=== PATIENT | male | born 1970 | race Caucasian/White ===

== ENCOUNTER → 2020-02-26 06:21 | Outpatient (CLI) | payer OTHER, SELFPAY ==
--- NOTE | 2020-02-26 06:22 | CA_ITS ---
APPROVED REPORT EXAM: Comprehensive 2D, Doppler, and color-flow Echocardiogram Clarifying Plant Operator: Muna Vargas RVT Ht: 5 ft 8 in Wt: 200lbs BSA: 2.04 BP: 141/75 mmHg Indications: CP,SOA,CAD,HX OF SMOKING,HTN,HLD 2D Dimensions LVOT 2.00 cm (M/F) 1.5-2.5 M-Mode Dimensions RVDd 3.04 cm (0.9-2.6) LVDd 4.83 cm (3.5-5.7) LVDs 3.31 cm (3.5-5.7) IVSd 1.10 cm (0.6-1.1) PWd 0.76 cm (0.6-1.1) EF (Teich) 59.20% FS 31.50% EDV (Teich) 109.10 mL ESV (Teich) 44.50 mL LV Diastology E/A Ratio 1.27 Mitral Valve MV A Velocity 45.00 (40-130 cm/s) Left Ventricle Left atrium is mildly enlarged, left ventricle is normal size, left ventricle wall thickness is upper limit of the normal, visually estimated ejection fraction 55% with no regional wall motion abnormality, diastolic parameters are within normal range. Right Ventricle Right atrium and right ventricular mildly enlarged with normal contractility. Aortic Valve Aortic valve is grossly normal, there is no aortic stenosis or aortic insufficiency. Mitral Valve Mitral valve is grossly normal, there is mild mitral regurgitation. Tricuspid Valve Tricuspid valve grossly normal, there is mild tricuspid regurgitation, tricuspid regurgitation jet velocity is inadequate for calculation of the right ventricular systolic pressure. Pulmonic Valve Pulmonic valve is poorly visualized. Great Vessels Aortic root is normal size. Pericardium No significant pericardial effusion noted. Conclusion 1. Mild biatrial enlargement, normal left ventricular size, visually estimated ejection fraction 55% with no regional wall motion abnormality, diastolic parameters are within normal range. 2. Mildly enlarged right ventricle with normal contractility. 3. Mild mitral and tricuspid regurgitation. 4. No significant pericardial effusion noted. Electronically signed by : Macho Frederick, 02/26/2020 21:43:21
--- NOTE | 2020-02-26 06:22 | CA_ITS ---
APPROVED REPORT Exam: Exercise Treadmill Technologist: Swapna Wallace Ht: 5 ft 8 in Wt: 200 lbs BSA: 2.04 m2 HR: 58 bpm BP: 154/83 mmHg Indications: Chest pain, Shortness of Air Medical History Medications: Amlodipine,,,,, Aspirin,,,,, Atorvastatin,,,,, Stress Test Details Test: Clint HR Resting HR: 61 bpm Max Heart Rate (APMHR): 169 bpm Max HR Achieved: 139 bpm Target HR (85% APMHR): 143 bpm % of APMHR: 82 Recovery HR: 87 bpm BP Resting BP: 154.0/83.0 mmHg Max BP: 196.0/80.0 mmHg Recovery BP: 152.0/86.0 mmHg ECG Clinical Exercise duration: 09:46 min Highest Stage Achieved: Exercise capacity: 10.1 METs Stress ECG Conclusion Resting ECG: Sinus bradycardia, otherwise normal. Patient exercised 9:46 on Clint Protocol. Test stopped due to shortness of air, fatigue. Symptoms: Mild chest tightness Arrhythmias/Ectopy: Occasional PVC and fusion beat. ST-T Changes: [address] depression inferiorly and 0.5 mm laterally. Conclusion: Mild chest tightness with equivocal EKG changes. Myoview images reported separately. Test Summary REST . . . . . . . Sitting REST . . . . . . . Standing REST 10:42 0.0 0.0 61 . 154/ 83 . . Stage 1 01:00 10.0 1.7 92 . . . . Stage 1 02:00 10.0 1.7 92 . . . . Stage 1 03:00 10.0 1.7 94 . 160/ 80 . . Stage 2 01:00 12.0 2.5 103 . . . . Stage 2 02:00 12.0 2.5 109 . . . . Stage 2 03:00 12.0 2.5 113 . 178/ 78 . . Stage 3 01:00 14.0 3.4 123 . . . . Stage 3 02:00 14.0 3.4 128 . . . . Stage 3 . . . . . . . Myoview Injected Stage 3 03:00 14.0 3.4 131 . 194/ 80 . . Stage 4 00:46 16.0 4.2 138 . . . Stop exercise at 09:46 RECOVERY . . . . . . . chest tightness RECOVERY 01:00 0.0 0.0 114 . 196/ 80 . . RECOVERY 02:00 0.0 0.0 97 . 196/ 80 . . RECOVERY 03:00 0.0 0.0 90 . 192/ 90 . . RECOVERY 04:00 0.0 0.0 94 . 171/ 83 . . RECOVERY 05:00 0.0 0.0 80 . 171/ 83 . . RECOVERY 05:25 0.0 0.0 82 . 152/ 86 . . Electronically signed by : Macho Frederick, 02/26/2020 21:21:26
--- NOTE | 2020-02-26 06:22 | NM_ITS ---
APPROVED REPORT Exam: Nuclear Stress Test Indication: chest pain Patient Location: Outpatient Stress Tech: Swapna Wallace [place] Tech:JACOB Grullon RT(R)(N) Ht: 5 ft 8 in Wt: 200 lbs HR: 58 bpm BP: 154/83 mmHg BSA: 2.04 m2 BMI: 30.4 History: chest pain Procedure: Patient exercised on Clnit protocol 9.46 minutes and sec, resting heart rate 58 bpm, resting blood pressure 154/83 mmHg, with exercise maximum heart rate achived was 139 bpm which is 82 % of the maximum predicted heart rate and blood pressure was 196/80 mmHg. Test was stopped due to Chest tightness.. Patient has Good exercise capacity, achieved 10.1 METs of workload on treadmill, the blood pressure response to exercise was Adequate. Electrocardiogram Resting electrocardiogram showed sinus rhythm, with exercise there is less than 1.[address] segment depression noted from the baseline EKG. The EKG portion of the exercise Myoview is nondiagnostic as patient did not achieve the target heart rate. Cardiac Stress and Resting SPECT Images: Cardiac Stress and Resting SPECT images were obtained using technetium 99m Myoview 32.4 mCi stress and 10.76 mCi at rest. Gated SPECT with analysis of segmental wall motion and calculation of the ejection fraction also done. Cardiac stress and rest SPECT images show decreased tracer activity in the inferior wall which improves on the resting images raising the concerns for presence of reversible ischemia, computer derived ejection fraction is 49% with mild inferior wall hypokinesis. Right ventricle is normal size and contractility. Conclusion: 1. The EKG portion of the exercise Myoview is nondiagnostic as patient did not achieve the target heart rate, patient has good exercise capacity achieved 10.1 mets of workload on treadmill, the blood pressure response to exercise was adequate, patient complained chest tightness with exercise. 2. Scintigraphic evidence of mild reversible ischemia involving the inferior wall, computer derived ejection fraction is 49% with mild inferior wall hypokinesis, right ventricle is normal size and contractility. 3. Abnormal exercise Myoview study. Electronically signed by : Macho Frederick, 02/26/2020 21:24:30
--- NOTE | 2020-02-26 10:14 | HMH.ITSHM ---
Current Home Medications as stated by this patient Anival Nelson or claim service representative. [] asa atorvastatin amlodipine
== END ==
PROVIDERS: PCP Family Medicine; Visit Provider Nurse Practitioner Family
DX: R07.9 Chest pain, unspecified (principal); I25.118 Atherosclerotic heart disease of native coronary artery with other forms of angina pectoris; I10 Essential (primary) hypertension; F17.200 Nicotine dependence, unspecified, uncomplicated
CPT/HCPCS: 78452; 93017; 93306; A9502

== ENCOUNTER → 2020-02-29 09:23 | Outpatient (CLI) | payer OTHER, SELFPAY ==
[2020-02-29 12:19] LABS: Alanine Aminotransferase 43 U/L (12-78); Albumin Level 4.4 g/dl (3.5-5.0); Alkaline Phosphatase 56 U/L (38-126); Aspartate Amino Transferase 38 U/L (17-59); Bilirubin,Direct 0.1 mg/dl (0.0-0.4); Bilirubin,Indirect 0.5 mg/dL (0.0-0.9); Bilirubin,Total 0.6 mg/dl (0.2-1.3); Bilirubin,Unconjugated 0.5 mg/dL (0.0-1.1); Cholesterol 149 mg/dl (140-200); HDL Cholesterol 49 mg/dl (40-60); Total Protein,Serum 7.6 g/dl (6.3-8.2); Triglycerides 77 mg/dl (30-150); VLDL Cholesterol 15 mg/dL (0-40)
[2020-02-29 12:30] LABS: Direct LDL Cholesterol 86.95 mg/dL (100-129)
== END ==
PROVIDERS: Nurse Practitioner Family; Visit Provider Internal Medicine
DX: I20.9 Angina pectoris, unspecified (principal)
CPT/HCPCS: 36415; 80061; 80076

== ENCOUNTER 2020-03-07 08:23 | Day surgery (SDC) | payer OTHER, SELFPAY ==
[2020-03-07] VITALS (12 sets, daily range): BP systolic 104–165; BP diastolic 60–94; PULSE 51–63; RESP 16; TEMP 36.6; O2SAT 93–100; BMI 30.7
--- NOTE | 2020-03-07 09:00 | IR_ITS ---
APPROVED REPORT Patient Location: Outpatient PROCEDURES Left heart catheterization Left ventriculogram Selective coronary angiogram Drug-eluting stent deployment to the right coronary artery's posterior descending artery INDICATION Abnormal Myoview with inferior wall ischemia, Coronary artery disease, Angina pectoris Informed consent was obtained prior to the procedure. COMPLICATIONS NONE Estimated Blood Loss: LESS THAN 10 ML TECHNIQUE One percent lidocaine used to anesthetize the right anterior aspect of the wrist. The right radial artery was accessed via the Seldinger technique. A 6 Emirati sheath was placed in the right radial artery. 2.5 mg of verapamil, 800 mcg of nitroglycerin, 1mg Lidocaine and 5000 U Heparin were given through the arterial sheath. The trap catheter was also used to perform left heart catheterization, left ventriculogram and selective coronary angiogram. At the end of the diagnostic angiogram therapeutic heparin was administered and a JR4 guide catheter was used to intubate the right coronary artery. A BMW wire was placed distally and a 2 mm x 30 mm resolute jericho stent was deployed at 12 rajni reducing the stenosis. A 2 mm x 12 mm noncompliant balloon was then deployed at 16 and then 18 rajni to post dilate the stent. YEN-3 flow was present before and after the procedure. After achieving excellent angiographic results the apparatus was removed the sheath was removed good hemostasis was achieved using TR banding patient was transferred to the postop holding her stable condition. ACT. And 42 seconds ANGIOGRAPHIC RESULTS The left main artery Normal The left anterior descending artery Has proximal mild 10% luminal irregularities with long mid vessel multiple 30% stenoses The circumflex artery Is a codominant vessel and has proximal 10% stenosis. A 2-1/2 mm first obtuse marginal artery has a mid vessel 50% stenosis with multiple diffuse 10 to 20% stenoses The right coronary artery Is a codominant vessel and has proximal 30 to 40% stenosis mid vessel 40% stenosis. The posterior descending artery has a proximal 90% followed by an 80% stenosis The POON ventriculogram reveals Normal 65% The left ventricular end-diastolic pressure 10 mmHg IMPRESSION Coronary disease as described above most notably with severe tandem stenoses in the posterior descending artery Successful stenting of the posterior descending artery critical disease reduced to 0% with one drug-eluting stent Persistent moderate stenoses throughout as described above Normal ejection fraction Normal left ventricular end-diastolic pressure PLAN 1. Brilinta and aspirin 2. LDL less than 55 3. Aggressive risk factor modification 4. Maximize antianginal medication 5. Avoidance of all tobacco products 6. Cardiac rehabilitation Electronically signed by : Jefferson Hughes, 03/07/2020 11:42:43
[2020-03-07 09:04] LABS: Chloride 105 mmol/L (98-107); Sodium 140 mmol/L (136-145)
[2020-03-07 09:05] LABS: Basophils % 0.6 % (0.1-2.0); Eosinophils # 0.2 K/mm3 (0.0-0.4); Hematocrit 42.6 % (42.0-52.0); Hemoglobin 15.3 g/dL (14.1-18.0); Lymphocytes # 2.4 K/mm3 (0.7-4.5); Lymphocytes % 34.1 % (10-50); Mean Corpuscular Hemoglobin 31.3 pg (27.0-31.2); Mean Platelet Volume 7.3 fl (7.4-10.4); Monocytes # 0.7 K/mm3 (0.1-1.0); Monocytes % 9.3 % (1.7-9.3); Neutrophils # 3.7 K/mm3 (1.8-7.8); Neutrophils % 53.1 % (37.0-80.0); Platelet Count 213 K/mm3 (142-424); Potassium 4.5 mmoL/L (3.5-5.1); Red Cell Distribution Width 13.6 % (11.5-17.5)
[2020-03-07 09:07] LABS: Blood Urea Nitrogen 15 mg/dl (9-20)
[2020-03-07 09:08] LABS: Anion Gap 13.5 mEq/L (5-15); Calcium 9.2 mg/dl (8.4-10.2); Carbon Dioxide 26 mmol/L (22.0-30.0); Creatinine Clearance Estimated 113 mL/min (50-200); Estimated Glomerular Filt Rate 79 ml/min (>60); GFR (African American) 95 ML/MIN (>60); Glucose 109 mg/dl (74-100)
[2020-03-07 09:32] LABS: Coronavirus 19 IgG Antibody Negative (Negative); Coronavirus 19 IgM Antibody Negative (Negative)
[2020-03-07 13:49] LABS: CATHL Activated Clotting Time 342 SEC (74-125)
--- NOTE | 2020-03-07 15:30 | HMH.PHACLD ---
Anival Nelson has received discharge medication counseling on the following medications: CONTINUE MEDICATIONS: ATORVASTATIN, ASPIRIN, AMLODIPINE NEW MEDICATIONS: BRILINTA, BISOPROLOL, RAMIPRIL
== END 2020-03-07 15:18 | disposition home or self-care (01) ==
LOC: CATHLAB 08:25
PROVIDERS: PCP Family Medicine; Visit Provider Internal Medicine
DX: I25.118 Atherosclerotic heart disease of native coronary artery with other forms of angina pectoris (principal); E78.5 Hyperlipidemia, unspecified; I10 Essential (primary) hypertension; R94.39 Abnormal result of other cardiovascular function study; Z72.0 Tobacco use
CPT/HCPCS: 80048; 85025; 85347; 86328; 92928; 93458; 99152; 99153; C1725; C1769; C1876; C9600; J1644; Q9967

== ENCOUNTER → 2020-03-14 10:13 | Outpatient (CLI) | payer OTHER, SELFPAY ==
[2020-03-14 10:40] LABS: Basophils # 0.1 K/mm3 (0-0.2); Basophils % 0.6 % (0.1-2.0); Eosinophils # 0.2 K/mm3 (0.0-0.4); Eosinophils % 2.7 % (0.1-12.0); Hematocrit 45.4 % (42.0-52.0); Hemoglobin 15.6 g/dL (14.1-18.0); Lymphocytes # 2.8 K/mm3 (0.7-4.5); Lymphocytes % 35.2 % (10-50); Mean Corpuscular HGB Conc 34.4 g/dL (31.8-35.4); Mean Corpuscular Hemoglobin 30.9 pg (27.0-31.2); Mean Platelet Volume 7.6 fl (7.4-10.4); Monocytes # 0.6 K/mm3 (0.1-1.0); Monocytes % 7.8 % (1.7-9.3); Neutrophils # 4.2 K/mm3 (1.8-7.8); Neutrophils % 53.7 % (37.0-80.0); Platelet Count 237 K/mm3 (142-424); Red Blood Count 5.05 M/mm3 (4.60-6.20); Red Cell Distribution Width 13.4 % (11.5-17.5); White Blood Count 7.9 K/mm3 (4.8-10.8)
[2020-03-14 12:13] LABS: Anion Gap 9.6 mEq/L (5-15); Blood Urea Nitrogen 15 mg/dl (9-20); Calcium 9.4 mg/dl (8.4-10.2); Carbon Dioxide 27 mmol/L (22.0-30.0); Chloride 106 mmol/L (98-107); Estimated Glomerular Filt Rate 71 ml/min (>60); GFR (African American) 85 ML/MIN (>60); Glucose 103 mg/dl (74-100); Potassium 4.6 mmoL/L (3.5-5.1); Sodium 138 mmol/L (136-145)
== END ==
PROVIDERS: Visit Provider Internal Medicine
DX: I25.118 Atherosclerotic heart disease of native coronary artery with other forms of angina pectoris (principal); I10 Essential (primary) hypertension; E78.2 Mixed hyperlipidemia; F17.200 Nicotine dependence, unspecified, uncomplicated
CPT/HCPCS: 36415; 80048; 85025

== ENCOUNTER 2020-04-03 18:17 | Emergency (ER) | payer OTHER, SELFPAY ==
[2020-04-03 18:32] VITALS: BP 148/92; PULSE 58; RESP 16; TEMP 36.9; O2SAT 98; BMI 30.4
--- NOTE | 2020-04-03 18:41 | HMH.EDUTC ---
[facility] [place] Clinical Impression: Abscess Cellulitis Qualifiers: Site of cellulitis: extremity Site of cellulitis of extremity: finger Laterality: left Qualified Code(s): L03.012 - Cellulitis of left finger Disposition: Home, Self-Care Condition on Discharge: Good Instructions: Cellulitis, DI for Wound Infection, Clindamycin, Mupirocin Additional Instructions: *Start antibiotic(s) immediately and be sure to take as ordered for the FULL length of time although you may be feeling better or start to see improvement in the next 24-48 hours *Monitor closely. Outlined redness so that you can monitor easier. Follow up immediately for new or worsening symptoms including but not limited to redness, swelling, streaking from site fever or chills. *Warm compress/epson salt soaks 15 minutes 3-[address] Topical medication as prescribed *Never squeeze or pop these on your own. Seek immediate medical attention next time this occurs *Monitor Temp. Tylenol every 4 hours as needed and ibuprofen every 6 hours as needed (as long as your primary care doctor has told you that it is ok to take both. For fever, aches, pain. ER if no less that 101 despite Tylenol and ibuprofen Follow up with your family doctor/primary care physician in the next 48-72 hours if no improvement Return if needed Wound culture was obtained call back to the [facility] on Tuesday to see if your wound culture results are back to make sure that you are on the right medication to clear the infection Straight to ER if any worsening of symptoms, red streaks going up hand etc. Elevation of hand may help with pain Prescriptions: clindamycin HCL [Clindamycin HCl 300mg Cap] 300 mg PO Q8 10 Days #30 cap Prescription Printed Mupirocin Calcium [Mupirocin 2% Cream 15gm] 1 applicatio TP TID 10 Days #1 tube Prescription Printed Referrals: Nicole Cabral MD [Primary Care Provider] - As needed Time of Disposition: 19:00 Medical Decision Making - Chintan Inquiry Pt receiving controlled substance: No Chintan was queried for this patient: No Vital Signs: 04/03/20 18:32 04/03/20 19:03 Temperature 98.4 F 98.4 F Temperature Source Oral Pulse Rate 58 L Pulse Rate [Right Brachial] 58 L Respiratory Rate 16 16 Blood Pressure 148/92 H Blood Pressure [Right Arm] 148/92 H Blood Pressure Mean [Right Arm] 110 Blood Pressure Source [Right Arm] Automatic Cuff Blood Pressure Position [Right Arm] Sitting 02 Sat by Pulse Oximetry 98 Oxygen Delivery Method Room Air Orders (Tests/Meds): ORDERS Category Date Time Status Wound Culture and Gram Stain Stat Micro 04/03/20 18:50 Received [facility] [place] - General Stated complaint: AO 1003Pice of wire in L Ring finger Time Seen by Provider: 04/03/20 18:41 Mode of Arrival: Ambulatory Source of Information: Patient Limitations: No Limitations Description of Symptoms (Recalled from Triage Doc. by RN): PATIENT STATES THAT THIS PAST WEEKEND A PIECE OF WIRE PUNCTURED HIS LEFT RING FINGER. C/O SWELLING, PAIN AND REDNESS HEENT Symptoms (Recalled from RN notes): No Resp Symptoms (Recalled from RN notes): No Skin Symptoms (Recalled from RN notes): Yes MS Symptoms (Recalled from RN notes): No Functional Status (Recalled from RN notes): WNL - History of Present Illness Provider Complaint: Patient states that he was working on car last week and a piece of dirty wire poked him in the left ring finger just under his fingernail States that he pulled the wire out and cleaned the finger but over the last week he noticed he was having some redness and swelling around the finger nail on his left ring finger States that he tried to poke it to see if he could get anything out of it but all he got was blood States that today it was more swollen and looking red and starting to spread down his finger so he come in to get it checked - Related Data Home Medications Medication Instructions Recorded Confirmed bisoprolol fumarate 5 mg tablet 5 m
[2020-04-03 19:03] VITALS: BP 148/92; PULSE 58; RESP 16; TEMP 36.9; O2SAT 98
== END 2020-04-03 19:10 | disposition home or self-care (01) ==
PROVIDERS: Emergency Provider Nurse Practitioner; PCP Family Medicine
DX: L03.012 Cellulitis of left finger (principal); I10 Essential (primary) hypertension; K21.9 Gastro-esophageal reflux disease without esophagitis; E78.5 Hyperlipidemia, unspecified; Z87.442 Personal history of urinary calculi; Z79.899 Other long term (current) drug therapy
CPT/HCPCS: 10060; 87070; 87186; 87205; 99201

== ENCOUNTER → 2021-06-12 12:36 | Outpatient (CLI) | payer OTHER, SELFPAY ==
--- NOTE | 2021-06-12 12:38 | CA_ITS ---
APPROVED REPORT Boat Mechanic: Muna Vargas RVT Laterality: Bilateral Study Quality: Good Indications: CAD Risk Factors Hypertension: Hyperlipidemia Smoking Doppler Spectral Velocity Analysis ECA (R) 117.60/17.10 cm/s ECA (L) 114.50/16.50 cm/s dICA (R) 97.30/34.20 cm/s dICA (L) 102.50/32.90 cm/s Suze (R) 82.30/23.50 cm/s Szue (L) 97.30/29.20 cm/s pICA (R) 63.10/13.90 cm/s pICA (L) 93.50/27.70 cm/s dCCA (R) 85.50/18.20 cm/s dCCA (L) 89.00/24.70 cm/s pCCA (R) 106.90/18.20 cm/s pCCA (L) 118.20/23.20 cm/s Vert (R) 32.90/6.00 cm/s Vert (L) 53.10/15.70 cm/s ICA/CCA 1.14 ICA/CCA 1.15 Findings Study suggests less than 20% stenosis of the right internal cartoid artery. Study suggests less than 20% stenosis of the left internal cartoid artery. Antegrade flow seen bilateral vertebral arteries. Conclusion Study suggests less than 20% stenosis of the right internal cartoid artery. Study suggests less than 20% stenosis of the left internal cartoid artery. Antegrade flow seen bilateral vertebral arteries. Electronically signed by : Brian Hernández MD 06/12/2021 17:02:23
== END ==
PROVIDERS: PCP Family Medicine; Visit Provider Internal Medicine Cardiovascular Disease
DX: I25.10 Atherosclerotic heart disease of native coronary artery without angina pectoris (principal); I10 Essential (primary) hypertension; E78.5 Hyperlipidemia, unspecified; F17.200 Nicotine dependence, unspecified, uncomplicated; Z95.5 Presence of coronary angioplasty implant and graft
CPT/HCPCS: 93880

== ENCOUNTER → 2021-07-13 14:54 | Outpatient (CLI) | payer OTHER, SELFPAY | PROVIDERS: Visit Provider Nurse Practitioner | DX: U07.1 COVID-19 (principal) | CPT/HCPCS: C9803; U0003; U0005 ==

== ENCOUNTER 2023-07-27 08:51 | Outpatient (CLI) | payer OTHER, SELFPAY ==
[2023-07-27 09:21] LABS: Basophils # 0.1 K/mm3 (0-0.2); Eosinophils # 0.1 K/mm3 (0.0-0.4); Hematocrit 45.1 % (42.0-52.0); Hemoglobin 15.4 g/dL (14.1-18.0); Lymphocytes # 2.4 K/mm3 (0.7-4.5); Lymphocytes % 33.9 % (10-50); Mean Corpuscular HGB Conc 34.2 g/dL (31.8-35.4); Mean Corpuscular Hemoglobin 30.9 pg (27.0-31.2); Mean Corpuscular Volume 90.3 fl (80-94); Mean Platelet Volume 7.8 fl (7.4-10.4); Monocytes # 0.7 K/mm3 (0.1-1.0); Monocytes % 10.1 % (1.7-9.3); Neutrophils # 3.7 K/mm3 (1.8-7.8); Platelet Count 172 K/mm3 (142-424); Red Blood Count 4.99 M/mm3 (4.60-6.20); Red Cell Distribution Width 13.7 % (11.5-17.5)
[2023-07-27 09:50] LABS: Chloride 106 mmol/L (98-107); Potassium 4.1 mmoL/L (3.5-5.1)
[2023-07-27 09:53] LABS: Alanine Aminotransferase 35 U/L (12-78); Albumin Level 4.1 g/dl (3.5-5.0); Alkaline Phosphatase 69 U/L (38-126); Aspartate Amino Transferase 32 U/L (17-59); Bilirubin,Direct 0.1 mg/dl (0.0-0.4); Bilirubin,Indirect 0.6 mg/dL (0.0-0.9); Bilirubin,Total 0.7 mg/dl (0.2-1.3); Bilirubin,Unconjugated 0.6 mg/dL (0.0-1.1); Blood Urea Nitrogen 13 mg/dl (9-20); Calcium 8.9 mg/dl (8.4-10.2); Carbon Dioxide 28 mmol/L (22.0-30.0); Cholesterol 144 mg/dl (140-200); Estimated Glomerular Filt Rate 70 ml/min (>60); GFR (African American) 84 ML/MIN (>60); Glucose 106 mg/dl (74-100); Magnesium 1.9 mg/dl (1.6-2.3); Total Protein,Serum 7.1 g/dl (6.3-8.2); Triglycerides 116 mg/dl (30-150); VLDL Cholesterol 23 mg/dL (0-40)
[2023-07-27 09:54] LABS: Chol/HDL Ratio 4.1 (1-3.5); HDL Cholesterol 35 mg/dl (40-60)
[2023-07-27 10:04] LABS: Direct LDL Cholesterol 78.61 mg/dL (100-129)
[2023-07-27 10:16] LABS: Free T4 (Free Thyroxine) 0.78 ng/dl (0.78-2.19)
[2023-07-27 10:22] LABS: Thyroid Stimulating Hormone 1.19 uIU/mL (0.465-4.68)
[2023-07-27 13:40] LABS: Anion Gap 9.1 mEq/L (5-15); Sodium 139 mmol/L (136-145)
== END 2023-07-27 23:59 ==
LOC: LAB 08:52
PROVIDERS: PCP Family Medicine; Visit Provider Nurse Practitioner Family
DX: E78.2 Mixed hyperlipidemia (principal); I11.9 Hypertensive heart disease without heart failure; I25.10 Atherosclerotic heart disease of native coronary artery without angina pectoris; I65.23 Occlusion and stenosis of bilateral carotid arteries; Z87.891 Personal history of nicotine dependence
CPT/HCPCS: 36415; 80048; 80061; 80076; 83735; 84439; 84443; 85025

== ENCOUNTER 2024-01-25 08:51 | Outpatient (CLI) | payer OTHER, SELFPAY | END 2024-01-25 23:59 | disposition home or self-care (01) | LOC: RT 08:52 | PROVIDERS: PCP Family Medicine; Visit Provider Physician Assistant | DX: R00.2 Palpitations (principal); I65.23 Occlusion and stenosis of bilateral carotid arteries; I11.9 Hypertensive heart disease without heart failure; I25.118 Atherosclerotic heart disease of native coronary artery with other forms of angina pectoris; R07.9 Chest pain, unspecified; R94.31 Abnormal electrocardiogram [ECG] [EKG]; I49.3 Ventricular premature depolarization | CPT/HCPCS: 93270 ==

== ENCOUNTER 2024-01-31 11:53 | Outpatient (CLI) | payer OTHER, SELFPAY ==
--- NOTE | 2024-01-31 12:00 | NM_ITS ---
APPROVED REPORT Exam: Nuclear Stress Test Indication: CAD, 1 STENT, HTN, HYPERLIPIDEMIA, C.P., ABN EKG Patient Location: Outpatient Stress Tech: Swapna Wallace SD Tech:Debbie Lane, ARRT, RT (R)(N) Ht: 5 ft 8 in Wt: 215 lbs HR: 62 bpm BP: 140/67 mmHg BSA: 2.11 m2 Rhythm: NSR TID: 1.10 BMI: 32.6 History: CAD, 1 STENT, HTN, HYPERLIPIDEMIA, C.P., ABN EKG Procedure: Patient exercised on Clint protocol 10:33 minutes and sec, resting heart rate 62 bpm, resting blood pressure 140/67 mmHg, with exercise maximum heart rate achived was 154 bpm which is 93 % of the maximum predicted heart rate and blood pressure was 194/85 mmHg. Test was stopped due to fatigue. Patient denied any complaint of chest pain. Patient has average exercise capacity, achieved 12.8 METs of workload on treadmill, the blood pressure response to exercise was normal. Cardiac Stress and Resting SPECT Images: Cardiac Stress and Resting SPECT images were obtained using technetium 99m Myoview 31.5 mCi stress and 10.20 mCi at rest. Resting and stress imaging in supine upon positions demonstrate no evidence of fixed or reversible perfusion defects. Gated imaging demonstrates mild reduction global LV systolic function. LVEF is located at 41%. Of note, the LVEF calculation may be inaccurate in the setting of frequent PVCs at the time of image acquisition. Conclusion: No evidence of fixed or reversible perfusion defects. Gated imaging demonstrates mild reduction global LV systolic function. LVEF is located at 41%. Of note, the LVEF calculation may be inaccurate in the setting of frequent PVCs at the time of image acquisition. Correlation of LVEF with recent or new TTE is suggested. Electronically signed by : Khadra Castro MD 02/01/2024 11:54:42
--- NOTE | 2024-01-31 12:44 | CA_ITS ---
APPROVED REPORT EXAM: Comprehensive 2D, Doppler, and color-flow Echocardiogram Insurance Sales Specialist: Muna Vargas RVT Ht: 5 ft 8 in Wt: 224lbs BSA: 2.14 BP: 135/62 mmHg Indications: ABN EKG,CAD,PALPITATIONS,HTN,HLD 2D Dimensions LA Volume 64.10 mL LA Volume Index 29.81 mL/m2 (M/F) 16-34 M-Mode Dimensions RVDd 2.98 cm (0.9-2.6) LA Diam 3.78 cm (1.9-4.0) LVDd 5.23 cm (3.5-5.7) LVDs 3.74 cm (3.5-5.7) IVSd 0.36 cm (0.6-1.1) PWd 0.76 cm (0.6-1.1) EF (Teich) 54.60% FS 28.50% EDV (Teich) 131.20 mL TAPSE 3.03 (<1.7) ESV (Teich) 59.60 mL LV Diastology E Decel Time 150 (160-240 msec) E/A Ratio 1.3 Aortic Valve ADA Index 0.80 cm2/m2 AoV Peak Hima. 148.0 (50-130 cm/s) AO Peak GR. 8.80 mmHg AO Mean GR. 5.80 (<5 mmHg) AO VTI 32.6 (18-25 cm) ADA (VTI) 1.76 (2.5-4.5 cm2) Mitral Valve MV E Max Hima. 85.0 (40-130 cm/s) MV A Velocity 66.0 (40-130 cm/s) E/A Ratio 1.28 MV PHT 44.0 ms Pulmonary Valve PV Peak Velocity 87.0 (50-150 cm/s) Tricuspid Valve TR P. Velocity 305.00 cm/s RAP Estimate 10.00 mmHg RVSP 47.20 mmHg Left Ventricle The left ventricle is normal size. The left ventricular systolic function is normal. The left ventricular ejection fraction is within the normal range. There is normal left ventricular wall thickness. There is normal LV segmental wall motion. Grade 2 diastolic dysfunction is present. LVEF is 55%. Right Ventricle Right ventricle is moderately dilated. The right ventricular systolic function is normal. Atria Left atrium is mildly dilated. Right atrium is mildly dilated. There is no Doppler evidence of interatrial shunt. Aortic Valve The aortic valve is mildly thickened. There is no aortic valvular stenosis. No aortic regurgitation is present. Mitral Valve The mitral valve is normal in structure. No evidence of mitral valve stenosis. Mild mitral valve regurgitation. Tricuspid Valve The tricuspid valve leaflets are thin and pliable. Mild tricuspid regurgitation. RVSP is 35-40 mmHg. Pulmonic Valve The pulmonary valve is normal in structure. Trace pulmonic regurgitation. Great Vessels The aortic root is normal in size. The ascending aorta is normal in size. IVC is normal in size and collapses >50% with inspiration. Pericardium There is no pericardial effusion. Other Information Study Quality: Fair Conclusion Normal LV systolic function. Moderate RV with normal RV function. Mild MR, mild TR. Elevated RVSP 35-40 mmHg. In the setting of RV dilation and palpitations, further evaluation is recommended, including limited TTE with agitated saline administration (bubble study) + cardiac MRI ([facility] protocol) + pulmonary/sleep evaluation. Electronically signed by : Khadra Castro MD 02/02/2024 20:17:49
[2024-01-31] MEDS: SODIUM CHLORIDE 0.9% 10ML SYR (RAD ONLY) 10 ML IV ×2 (13:45)
[2024-01-31] MEDS: ISOTOPE MYOVIEW (PER STUDY) 1 DOSE IV (13:45)
--- NOTE | 2024-01-31 14:04 | CA_ITS ---
APPROVED REPORT Exam: Exercise Treadmill Technologist: Swapna Wallace Ht: 5 ft 8 in Wt: 224 lbs BSA: 2.14 m2 HR: 53 bpm BP: 140/67 mmHg Rhythm: NSR Indications: i25.10, R42,R07.9 Medical History Medications: Omeprazole,,,,, Aspirin,,,,, Atorvastatin,,,,, Ramipril,,,,, BisOPROLOL,,,,, DuTASTERIDE-TAMSULOSIN,,,,, Stress Test Details Test: Clint HR Resting HR: 62 bpm Max Heart Rate (APMHR): 165 bpm Max HR Achieved: 154 bpm Target HR (85% APMHR): 140 bpm % of APMHR: 93 Recovery HR: 88 bpm HR response to stress: Normal HR response to stress BP Resting BP: 140.0/67.0 mmHg Max BP: 191.0/85.0 mmHg Recovery BP: 149.0/70.0 mmHg BP response to stress: Normal blood pressure response to stress. ECG Resting ECG: Sinus bradycardia Stress EC mm horizontal ST depression Arrhythmia: PVCs Recovery ECG: Return to baseline within 3 minutes of recovery Recovery Arrhythmia: PVCs Clinical Exercise duration: 10:33 min Highest Stage Achieved: Exercise capacity: 12.8 METs Stress ECG Conclusion Symptoms: Dysnea Arrhythmias/Ectopy: PVC during exertion and in recovering ST-T Changes: [address] depression Conclusion: ECG changes equivocal for ischemia at peak stress. Myoview images reported separately. Test Summary REST . . . . . . . Sitting REST 03:27 0.0 0.0 62 . 140/ 67 . . Stage 1 01:00 10.0 1.7 84 . . . . Stage 1 02:00 10.0 1.7 90 . . . . Stage 1 03:00 10.0 1.7 88 . . . . Stage 2 01:00 12.0 2.5 102 . 140/ 82 . . Stage 2 02:00 12.0 2.5 102 . 140/ 82 . . Stage 2 03:00 12.0 2.5 109 . 160/ 84 . . Stage 3 01:00 14.0 3.4 118 . . . . Stage 3 02:00 14.0 3.4 122 . . . . Stage 3 03:00 14.0 3.4 126 . 184/ 86 . . Stage 4 01:00 16.0 4.2 145 . . . . Stage 4 01:33 16.0 4.2 152 . . . Stop exercise at 10:33 RECOVERY 01:00 0.0 0.0 138 . 180/ 76 . . RECOVERY 02:00 0.0 0.0 119 . 180/ 76 . . RECOVERY 03:00 0.0 0.0 100 . 191/ 85 . . RECOVERY 04:00 0.0 0.0 91 . 190/ 92 . . RECOVERY 05:00 0.0 0.0 93 . 190/ 92 . . RECOVERY 06:00 0.0 0.0 89 . 169/ 66 . . RECOVERY 07:00 0.0 0.0 90 . 169/ 66 . . RECOVERY 08:00 0.0 0.0 85 . 149/ 70 . . RECOVERY 08:18 0.0 0.0 88 . 149/ 70 . . Electronically signed by : Khadra Castro MD 02/01/2024 11:53:19
== END 2024-01-31 23:59 | disposition home or self-care (01) ==
LOC: RAD 11:55
PROVIDERS: PCP Family Medicine; Visit Provider Physician Assistant
DX: R07.9 Chest pain, unspecified (principal); R00.2 Palpitations; I11.9 Hypertensive heart disease without heart failure; I25.118 Atherosclerotic heart disease of native coronary artery with other forms of angina pectoris; R42 Dizziness and giddiness; E78.2 Mixed hyperlipidemia; R94.31 Abnormal electrocardiogram [ECG] [EKG]; I49.3 Ventricular premature depolarization; Z87.891 Personal history of nicotine dependence
CPT/HCPCS: 78452; 93017; 93018; 93306; A9502

== ENCOUNTER 2024-06-13 13:44 | Outpatient (CLI) | payer OTHER, SELFPAY ==
--- NOTE | 2024-06-13 13:45 | CT_ITS ---
FINAL REPORT CLINICAL HISTORY: lung cancer screening former smoker, quit 9 years ago. smoked 1.5 ppd for 36 years COMPARISON: None FINDINGS: CT CHEST LOW DOSE SCREENING HISTORY: Screening exam for lung cancer. 53-year-old male, former smoker who quit 9 years ago, 54 pack year smoking history DOSE: CTDIvol: 2.9 mGy, DLP: 108.64 mGy*cm COMPARISON: None . TECHNIQUE: Axial CT without IV contrast administration using low dose protocol. This study was performed with techniques to keep radiation doses as low as reasonably achievable, (ALARA). Individualized dose reduction techniques using automated exposure control or adjustment of mA and/or kV according to the patient's size were employed. FINDINGS: No acute lung disease is present . There is a 4 mm right lower lobe nodule present, best seen on image #39. There is evidence of prior granulomatous disease. There are coarse linear densities in the right middle lobe, atelectasis or scarring. No pleural or pericardial effusion is seen . No adenopathy or mass lesion is present . IMPRESSION: 4 mm right lower lobe nodule as described. LUNG RADS CATEGORY 2 RECOMMENDATION: 12 month LDCT follow up Reviewed, Interpreted and Dictated by Nicole Fox MD Transcribed by Nohemy Marroquin Authenticated and [facility]
[2024-06-13 15:40] VITALS: PULSE 82; PULSE 86
[2024-06-13] MEDS: ALBUTEROL 0.083% 2.5 MG/3 ML NEB IH (15:40)
== END 2024-06-13 23:59 | disposition home or self-care (01) ==
LOC: RAD 13:45
PROVIDERS: PCP Family Medicine; Visit Provider Internal Medicine Pulmonary Disease
DX: R06.09 Other forms of dyspnea (principal); F17.210 Nicotine dependence, cigarettes, uncomplicated
CPT/HCPCS: 71271; 94060; 94618; 94640; 94727; 94729; J7613

== ENCOUNTER → 2024-07-30 07:39 | Outpatient (CLI) | payer BC, SELFPAY | PROVIDERS: PCP Internal Medicine Pulmonary Disease; Visit Provider Internal Medicine Pulmonary Disease | DX: G47.33 Obstructive sleep apnea (adult) (pediatric) (principal); G47.36 Sleep related hypoventilation in conditions classified elsewhere | CPT/HCPCS: G0399 ==

== ENCOUNTER 2024-10-04 08:31 | Outpatient (CLI) | payer BC, SELFPAY ==
--- NOTE | 2024-10-04 08:45 | CA_ITS ---
APPROVED REPORT EXAM: Comprehensive 2D, Doppler, and color-flow Echocardiogram Cycle Repairer: Arabella Roque RT(R) Ht: 5 ft 8 in Wt: 224lbs BSA: 2.14 BP: 135/62 mmHg Indications: limited bubble study ordered. RV dilation, palpitations, HTN, hyperlipidemia, CAD Echo Enhancing Agent Indication: Rule out Shunt Agent(s) / Amount(s) Used: Agitated Saline 20 cc Other Information Study Quality: Technically Difficult Conclusion This is a limited TTE to evaluate for interatrial shunt. Limited windows are obtained. Technically difficult study. Administration of agitated saline (bubble study) demonstrates no evidence of interatrial shunt at rest or with Valsalva or sniff maneuvers. Electronically signed by : Khadra Castro MD 10/06/2024 16:11:02
[2024-10-04 09:02] LABS: Chloride 103 mmol/L (98-107)
[2024-10-04 09:03] LABS: Potassium 4.7 mmoL/L (3.5-5.1); Sodium 140 mmol/L (136-145)
[2024-10-04 09:06] LABS: Anion Gap 11.7 mEq/L (5-15); Blood Urea Nitrogen 12 mg/dl (9-20); Calcium 8.9 mg/dl (8.4-10.2); Carbon Dioxide 30 mmol/L (22.0-30.0); Estimated Glomerular Filt Rate 69 ml/min (>60); GFR (African American) 84 ML/MIN (>60); Glucose 126 mg/dl (74-100)
--- NOTE | 2024-10-04 10:30 | MR_ITS ---
APPROVED REPORT [employer]ater: CLINICAL INDICATION RV dilation, evaluation for ARVC vs interatrial shunt TECHNIQUE Image Acquisition: Cardiac magnetic resonance (CMR) was performed on Siemens Espree MRI 1.5T scanner. Software platform sequences were performed using the Siemens Extreme Wireless Communication MR B19 platform. A set of three-plane, low-resolution, large [id number] localizers were initially acquired. Then axial, coronal, sagittal TrueFISP, as well as axial HASTE images, were obtained. These were followed by gated TrueFISP breathold cinematic sequences obtained in the short axis with 8 mm slices and 2 mm gaps, 2-chamber (vertical long axis), 3-chamber, 4-chamber (horizontal long axis). A bolus of contrast was injected intravenously with first-pass sequences obtained in the short axis and four-chamber planes. After approximately 10 minutes, a TI rand maker sequence was performed to determine the optimal TI time. Using the optimized TI time, delayed contrast enhancement segmented inversion???recovery TurboFLASH sequences were obtained in the short axis, 2-chamber, 3-chamber, and 4-chamber projections. 2D-velocity phase mapping was performed. Functional parameters were calculated by offline analysis on an independent workstation ([employer] Platform, [employer]). Contrast: ProHance??? (Gadoteridol) FINDINGS MORPHOLOGY AND FUNCTION Left ventricle: The left ventricle is normal in size. The indexed left ventricular end-diastolic volume (LVEDVi) is 55 ml/m2 (reference range 57-105 ml/m2 in males, 56-96 ml/m2 in females). Normal left ventricular systolic function is present. There is normal left ventricular wall thickness. There are no regional wall motion abnormalities noted. LVEF is calculated at 57.9% (reference range 57-77%). Right ventricle: The right ventricle is normal in size. The indexed right ventricular end-diastolic volume (RVEDVi) is 58 ml/m2 (reference range 61-121 ml/m2 in males, 48-112 ml/m2 in females). Low-normal right ventricular systolic function is present. RVEF is calculated at 49.0% (reference range 52-72% in males, 51-71% in females). Atria: The left atrium is normal in size. The maximum indexed left atrial volume is 26 ml/m2 (reference range 26-52 ml/m2 in males, 27-53 ml/m2 in females). The right atrium is normal in size. The maximum indexed right atrial volume is 24 ml/m2 (reference range 18-90 ml/m2). Aorta: The diameter of the aortic annulus is normal, measuring 25 mm (coronal view reference range 21-30 mm in males, 19-27 mm in females). The diameter of the aortic sinus is normal, measuring 30 mm (coronal view reference range 25-42 mm in males, 24-36 mm in females). The diameter of the sinotubular junction is normal, measuring 23 mm (coronal view reference range 18-32 mm in males, 18-28 mm in females). The diameters of the ascending and descending thoracic aorta are normal. Main pulmonary artery: The main pulmonary artery diameter is normal. Pericardium: The pericardial thickness is normal. The pericardial thickness measures 2.1 mm (normal < 4.0 mm). There is no pericardial effusion. VALVES The valvular morphologies in the visualized sequences appear normal. There is no significant valvular stenosis or regurgitation of the mitral, aortic, tricuspid, or pulmonic valve noted visually. Systolic anterior motion of the mitral valve is not visualized. Ratio of pulmonary to systemic flow, Qp:Qs ratio = 0.8 (normal < or = 1.2, hemodynamically significant shunt > 1.5), demonstrating no evidence of hemodynamically significant shunt. TISSUE CHARACTERIZATION Resting Perfusion: Normal myocardial blood flow at rest. No evidence of resting hypoperfusion. Myocardial Fibrosis and/or edema: Normal gadolinium kinetics are present. No evidence of late gadolinium enhancement is noted, consistent with absence of myocardial scarring, infarction, or necrosis. T2-weighted imaging demonstrates no evidence of myocardial edema or inflammation. OTHER No other significant findings are noted. However, this exam is focused on the cardiac structure and function. IMPRESSION Normal LV size with normal LV systolic function. LVEDVi= 55 ml/m2 and LVEF= 57.9%. Normal RV size with low-normal RV systolic function. RVEDVi= 58 ml/m2 and RVEF= 49.0%. No atrial enlargement. No CMR evidence of myocardial scarring, infarction, or necrosis. No evidence of myocardial edema or inflammation. Perfusion analysis demonstrates normal blood flow at rest with no evidence of resting hypoperfusion. Ratio of pulmonary to systemic flow, Qp:Qs ratio = 0.8 (normal < or = 1.2, hemodynamically significant shunt > 1.5), demonstrating no evidence of hemodynamically significant shunt. Overall, this CMR demonstrates normal biventricular size and systolic function. No evidence of RV dilation on CMR. This CMR does not meet criteria for ARVC. Qp:Qs ratio demonstrate no evidence of hemodynamically significant interatrial shunt. COMPARISON None CRITICAL RESULT None COMMUNICATION Per this written report The findings of this cardiac MR were reviewed, reported, and signed by Will Castro MD (Restaurant Cashier). Conclusion Electronically signed by : Khadra Castro MD 10/16/2024 21:19:18
[2024-10-04] MEDS: GADOTERIDOL INJ 20ML SYRINGE 20 ML IV (11:30)
[2024-10-04] MEDS: GADOTERIDOL INJ 10ML SYRINGE 3 ML IV (11:30)
[2024-10-04] MEDS: 0.9 % SODIUM CHLORIDE 50 ML VIAL IV (11:30)
[2024-10-04] MEDS: SODIUM CHLORIDE 0.9% 10ML SYR (RAD ONLY) 10 ML IV (11:30)
--- OUTSIDE RECORDS SUMMARY | 2024-10-04 22:48 | XMS_ITS | Data Portability ---
Author Organization [facility] - LEANDRA Carpio [facility] CLOSED Address [address] [facility] [address] [place] [address] Assessment Encounter Date Assessment Date Assessment LastModified by Organization Details LastModified Time 06/01/2017 06/01/2017 SURGERY DATE: 06/01/2017 PREOPERATIVE DIAGNOSIS: Right inguinal hernia. POSTOPERATIVE DIAGNOSIS: Direct incarcerated right inguinal hernia. PROCEDURES: Open repair of direct incarcerated right inguinal hernia, unilateral transversus abdominis plane block. FINDINGS: The patient had approximately 3 cm direct hernia defect. The bowel would not reduce. OPERATIVE NOTE: General anesthesia was induced. Right groin was prepped and draped sterilely. Oblique incision was made in the right groin and dissection was carried down to the subcutaneous tissue. A superficial vein was ligated with Vicryl ties and divided. External abdominal oblique aponeurosis was divided along the length of its fibers and extended down to the external ring. The ilioinguinal nerve was identified. It was medially and superiorly perforated through the external abdominal oblique fascia. It was preserved. The cord structures were dissected at the level of pubic tubercle and carefully freed back to the level of the internal ring. Now, the hernia could be reduced. There seemed to be an approximately 3 cm direct defect. The cremasteric fibers were dissected and seemed to not have an indirect hernia. A transversus abdominis plane block was done by taking a solution of bupivacaine, buprenorphine and clonidine and injecting 5 mL of it 2.5 cm medial to the anterior superior iliac spine, it was also used as a field block. Now, the transversalis fascia was closed over the direct defect using 0 Ethibond suture in a running fashion. A piece of polypropylene mesh was selected and sliced so that the legs could wrap around the cord structures. The 2-0 Prolene sutures were used to sew the legs together, now 2-0 Prolene sutures were used to secure the mesh to the shelving edge of inguinal ligament and 0 Ethibond sutures were used to secure it to the soft tissues of the pubic tubercle as well as the internal oblique/transver salis layer superiorly. irrigated and 3-0 Vicryl was used to close the external abdominal oblique aponeurosis being careful not to entrap the nerve. A 3-0 Vicryl was used to close the Kevin's fascia, 4-0 Monocryl was used in a subcuticular fashion to close the skin. A Dermabond dressing was applied. Blood loss scant. [email or web address] Not available 06/03/2017 07:26:11 Plan of Treatment Reminders Order Date Submit Date Provider Last Modified By Organization Details Last Modified Time Details Appointments None record ed. Lab None record ed. Referral None record ed. Procedures None record ed. Surgeries None record ed. Imaging None record ed. Medication Orders None record ed. Patient TargetsNo targets recorded. Patient InstructionsNo instructions recorded. Reason for Referral None Reported. Problems Name Problem SNOMED Code Status Onset Date Resolution Date Notes Provider Name and Address Organization Details Recorded Time Right inguinal hernia 571569806 Active 017 SHIRIN BERNSTEIN JR, MD [address] [place] [address], [phone] , [facility] 7 19:45:03 Problem Notes None recorded. Medical Equipment None Reported. Allergies No known drug allergies Medications Name Sig Start Date Stop Date Status Note LastModified by Organization Details LastModified Time oxycodone -acetamin ophen 5 mg-325 mg tablet 05/17 completed Not Available Not Available Not Available cephalexi n 500 mg capsule 05/17 completed Not Available Not Available Not Available Colwich 5 mg-325 mg tablet Take 1 tablet every 6 hours by oral route as needed for 4 days. 2016 active to d/c 06-11-17 following inguinal hernia surgery Not Available Not Available Not Available fluticaso ne propionat e 50 mcg/actua tion nasal spray,jacquelyn pension 05/17 completed Not Available Not Available Not Available Vitals Date Recorded Body height Body mass index (BMI) Body weight Heart rate Systolic blood pressure Diastolic blood pressure Provider Name and Address Organization Details Last Updated DateTime 172.72 cm 29.6 kg/m2 65596.5 1 g 64 /min 130 mm[Hg] 70 mm[Hg] Dorothea lopez [facility] 09:08:14 Date Recorded Body height Body mass index (BMI) Body weight Heart rate Systolic blood pressure Diastolic blood pressure Provider Name and Address Organization Details Last Updated DateTime 172.72 cm 30.4 kg/m2 87993.4 7 g 64 /min 122 mm[Hg] 80 mm[Hg] Dorothea lopez [facility] 14:35:29 Social History Question Answer Notes LastModified by Organizat ion Details LastModified Time Tobacco Smoking Status Former Smoker quit 2014 Dorothea Gellermarvinsuzan [facility] 05/17/2017 09:09:28 What Was The Date Of Your Most Recent Tobacco Screening? 06/09/2017 Information not available 08/14/2019 How Much Tobacco Do You Smoke? 1 PPD Information not available 05/17/2017 How Many Years Have You Smoked Tobacco? 30 Information not available 05/17/2017 Sex: Unknown Functional Status None recorded. Mental Status None recorded. Family History Nothing Reported Notes:mom type 2 diabetic da d COPD - mcc smoker Medical History Condition Response Heart Disease COPD Past Encounters Encounter ID Performer Location Encounter Start Date Encounter Closed Date Diagnosis/Indication Diagnosis SNOMED-CT Code Diagnosis ICD10 Code Diagnosis Note [id number] SHIRIN BERNSTEIN JR, MD [facility] [address] [place] [address] 05/17/2017 08:48:53 05/18/2017 08:58:44 Right inguinal hernia 530448147 K40.90 Symptomati c right inguinal hernia. I believe open repair is preferable in this case. I explained there is 1% chance of catastroph ic complicati on and 1% chance of long-term pain. He wishes to proceed with surgery. [id number] SHIRIN BERNSTEIN JR, MD SURGERY SCHEDULE [address] [place] [phone] 06/01/2017 07:20:27 06/01/2017 08:50:31 [id number] SHIRIN BERNSTEIN JR, MD [facility] [address] [place] [address] 06/09/2017 14:16:42 06/09/2017 17:32:31 Health Concerns Section Related Observation LastModified by Organization Detai ls LastModified Time None Recorded Concern Status LastModified by Organization Details LastModified Time None Recorded Advance Directives Directive None Recorded Payers Encounter Date Sequence Insurance Name Policy Number Policy Flores Covered Member ID Flores Member ID Guarantor Name 05/17/2017 1 [facility] [id number] Anival Nelson [id number] Anival Nelson 06/01/2017 1 [facility] [id number] Anival Nelson [id number] Anival Nelson 06/09/2017 1 [facility] [id number] Anival Nelson [id number] Anival Nelson Notes Date Note Type Note Provider Name and Address Organization Details Recorded Time 05/17/2017 text/html Mr. Nelson return s for evaluation of right inguinal hernia. He states that it used to be painful when it first occurred. Now it is less painful. It will have discomfort when he needs to void. It protrudes with intercourse. He denies having to strain to move his bowels or void. He denies nausea or vomiting. He denies chest pain or myocardial infarction. He has no dyspnea when he ambulates quickly. He stop smoking 2 years ago. Heart catheterization in 2009 showed minimal coronary disease. He takes no medications. SHIRIN BERNSTEIN JR, MD [address] [place] [address], [phone], [facility] 05/17/2017 19:49:16 06/09/2017 text/html Mr. Nelson had op en repair of incarcerated direct hernia on June 01. He had moderate pain at first 4 days. This is resolved. He only has soreness now. His wound is well-healed. He can return to lifting more than 15 pounds on July 11. He can follow-up as needed. SHIRIN BERNSTEIN JR, MD [address] [place] [address], [phone], [facility] 06/09/2017 14:59:04
--- OUTSIDE RECORDS SUMMARY | 2024-10-04 22:48 | XMS_ITS | Data Portability ---
Author Organization [facility] - Darrius nelson MD, Main Office Address [address] [place] [address], [facility] [address] [place] [address] Assessment No assessment recorded. Plan of Treatment Reminders Order Date Submit Date Provider Last Modified By Organization Details Last Modified Time Details Appointments None record ed. Lab None record ed. Referral None record ed. Procedures None record ed. Surgeries None record ed. Imaging None record ed. Medication Orders None record ed. Patient TargetsNo targets recorded. Patient Instructions Encounter Date Encounter Id Patient Instructions Last Modified By Organization Details Last Modified Time 08/09/2022 [id number] ulnar neuropathy (handlebar palsy): exercises [email or web address] Not available 08/09/2022 09:40:18 Carpal Tunnel Syndrome: Care Instructions [email or web address] Not available 08/09/2022 09:40:18 Reason for Referral None Reported. Results Created Date Observation Date Name Description Value Unit Range Abnormal Flag Note LastModifiedBy Organization Detail LastModifiedTime 08/09/19 23 08/09/2022 elect romyo gram + nerve condu ction study No observ ation record ed. [email or web address] Not Available 2022 12:01:59 Result Notes None recorded. Problems No Known Problems Procedures Surgical History Date Name Laterality Status Provider Name and Address Organization Details Recorded Time 08/09/2022 NCV/EMG completed Omero Elias MD 08/09/2022 09:39:45 Imaging Results Imaging Date Name Status LastModified by Organization Details LastModified Time 08/09/2022 electromyogram + nerve conduction study completed [email or web address] Information not available 08/09/2022 12:01:59 Procedure Notes None recorded. Medical Equipment None Reported. Allergies No known drug allergies Medications Name Sig Start Date Stop Date Status Note LastModified by Organization Details LastModified Time atorvastatin 40 mg tablet TAKE 1 TABLET BY MOUTH ONCE DAILY FOR CHOLESTEROL active Not Available Not Available Not Available omeprazole 40 mg capsule,alivia yed release TAKE 1 CAPSULE BY MOUTH ONCE DAILY active Not Available Not Available No t Available aspirin 81 mg tablet,delay ed release TAKE 1 TABLET BY MOUTH ONCE DAILY active Not Available Not Available No t Available bisoprolol fumarate 5 mg tablet TAKE 1 TABLET BY MOUTH ONCE DAILY active Not Available Not Available No t Available ramipril 2.5 mg capsule TAKE 1 CAPSULE BY MOUTH ONCE DAILY active Not Available Not Available No t Available Suprep Bowel Prep Kit 17.5 gram-3.13 gram-1.6 gram oral solution TAKE DIRECTED active Not Available Not Available No t Available Vitals None Recorded Social History None recorded. Functional Status None recorded. Mental Status None recorded. Family History Nothing Reported. Medical History No medical history recorded. Past Encounters Encounter ID Performer Location Encounter Start Date Encounter Closed Date Diagnosis/Indication Diagnosis SNOMED-CT Code Diagnosis ICD10 Code Diagnosis Note [id number] Omero Torres Main Office [address] [facility] [address] [place] [address] 08/09/2022 08:56:34 08/09/2022 09:41:14 Bilateral carpal tunnel syndrome [id number] 0426327 G56.03 Severe bilateral CTS. 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 Health Concerns Section Related Observation LastModified by Organization Detai ls LastModified Time None Recorded Concern Status LastModified by Organization Details LastModified Time None Recorded Advance Directives Directive None Recorded Payers Encounter Date Sequence Insurance Name Policy Number Policy Flores Covered Member ID Flores Member ID Guarantor Name 08/09/2022 1 [facility] [id number] Anival Nelson [id number] Anival Nelson
== END 2024-10-04 23:59 | disposition home or self-care (01) ==
PROVIDERS: PCP Family Medicine; Visit Provider Physician Assistant
DX: I51.7 Cardiomegaly (principal); R94.31 Abnormal electrocardiogram [ECG] [EKG]; F17.200 Nicotine dependence, unspecified, uncomplicated; E78.2 Mixed hyperlipidemia; I10 Essential (primary) hypertension
CPT/HCPCS: 36415; 75561; 80048; 93308; A9576

== ENCOUNTER 2025-03-22 10:22 | Day surgery (SDC) | payer BC, SELFPAY ==
[2025-03-22] VITALS (9 sets, daily range): BP systolic 136–158; BP diastolic 68–92; PULSE 51–64; RESP 16–18; TEMP 36.2–36.6; O2SAT 93–99; BMI 34.2
[2025-03-22] MEDS: LACTATED RINGERS 1000ML 1,000 ML 25 ML IV (10:50)
[2025-03-22 10:58] LABS: Hematocrit 43.4 % (42.0-52.0); Hemoglobin 15.2 g/dL (14.1-18.0); Immature Granulocytes % 0.4 %; Mean Corpuscular HGB Conc 35.0 g/dL (31.8-35.4); Mean Corpuscular Hemoglobin 30.6 pg (27.0-31.2); Mean Corpuscular Volume 87.5 fl (80-94); Nucleated Red Blood Cells % 0 %; Platelet Count 172 K/mm3 (142-424); Red Blood Count 4.96 M/mm3 (4.60-6.20); Red Cell Distribution Width-SD 41.6 fL; White Blood Count 7.4 K/mm3 (4.8-10.8)
[2025-03-22 11:11] LABS: Chloride 102 mmol/L (98-107); Potassium 4.4 mmoL/L (3.5-5.1); Sodium 137 mmol/L (136-145)
[2025-03-22 11:14] LABS: Anion Gap 11.4 mEq/L (5-15); Blood Urea Nitrogen 12 mg/dl (9-20); Calcium 9.2 mg/dl (8.4-10.2); Carbon Dioxide 28 mmol/L (22.0-30.0); Creatinine Clearance Estimated 108 mL/min (50-200); Creatinine,Serum 1.10 mg/dl (0.66-1.25); Estimated Glomerular Filt Rate 69 ml/min (>60); GFR (African American) 84 ML/MIN (>60); Glucose 108 mg/dl (74-100)
--- NOTE | 2025-03-22 11:29 | P.PNANES_ITS ---
[facility] Disclaimer: The information contained in this section may have been updated after the patient was seen, as this information can be updated by other users. Medical History Lipoma of back Right ventricular dilation Fatigue Encounter for screening for malignant neoplasm of lung History of smoking 30 or more pack years Dyspnea on exertion Pulmonary hypertension Frequent PVCs Normal esophagogastroduodenoscopy (EGD) Bradycardia Carotid artery stenosis HLD (hyperlipidemia) HTN (hypertension) Tobacco dependence syndrome Chest pain CAD (coronary artery disease) Surgical History H/O carpal tunnel repair Hx of colonoscopy Social History Smoking Status: Former smoker second hand exposure: No alcohol intake: never substance use type: denies use current occupational status: other Travel in the last 8 weeks?: Inside the [place] Have you lived/traveled outside US in past 30 days?: No Contact w/someone who lives/traveled outside US past 30 days?: No Exposure to someone with infectious disease in past 14 days?: No Do you have a fever (greater than 100.4 F or 38 C)?: No Have you tested positive for COVID-19?: No Exposed to someone with COVID-19 in past 14 days?: No Do you have a sore throat?: No Do you have a cough?: No Do you have any weakness?: No Do you have any diarrhea?: No Are you experiencing any unusual bleeding?: No Do you have any muscle aches/pain?: No Do you have any abdominal pain?: No Are you experiencing loss of taste or smell?: No [facility] Anesthesia Checklist Patient Identification Patient Identification: Arm Band Structural Data Admitted From: Home Planned Operative Procedure/s: I&D Back Abscess Consent for Planned Operative Procedure(s) Verified: Yes Verified Documents: Surgical Consent and History and Physical NPO Status Verified Time NPO: 06:00 (coffee with creamer) Additional verifications Anesthesia Reactions: No Hx Blood Transfusions: No Blood Transfusion Reaction: No Airway Assessment Mallampati Score:: Class II C-Spine Mobility Assessed: Yes TMJ Mobility Assessed: Yes Dentition: Good Dentition Neurological Assessment Level of Consciousness: Awake, Alert and Appropriate Anesthesia Plan Anesthesia Risk discussed: Yes Anesthesia Plan: Verified ASA Class: III Anesthesia Type: General
[2025-03-22] MEDS: LIDOCAINE 1% 20ML MDV 20 ML (12:23)
--- NOTE | 2025-03-22 13:10 | EXP.ANES.I ---
[facility] Anesthesia Record Part I Anesthesia Record I Intake, IV Amount: 800 Hydration: Adequate Estimated blood loss (mL): 5 Urine output (mL): 0 Blood Products used (#): none Blood Pressure: 153/69 SaO2: 93 Pulse Rate: 64 Airway Patency: Patent Respiratory Rate: 16 Temperature: 98 F Patient is:: Drowsy and Stable Stable to PACU at:: 13:05
--- NOTE | 2025-03-22 13:11 | P.OP_ITS ---
Date of procedure: 03/22/25 Pre-op Diagnosis:: Subcutaneous mass, right upper back, (cyst versus lipoma) Post-op Diagnosis:: Same Procedure performed:: Excision of sebaceous cyst right upper back (excisional length 4.5 cm) with intermediate complexity closure Surgeon:: Brandon Triana MD PROJECT DEVELOPMENT LEADER:: Neftali Tobar Anesthesia: LMA Estimated blood loss (mL): 5 Clinical Note:: Patient is a 54-year-old male whose had a knot on the right upper back area for quite some time. He wishes to have it excised under local anesthesia. Ultimately his primary care provider was agreeable to this and this was attempted this morning. However as the procedure was began it was unclear if this was a lipoma. There was concern for continuing and he was sent for immediate surgical evaluation for possible excision under anesthesia. He was seen in the office and clinically this appeared to be consistent with a sebaceous cyst. Given the fresh incision it was felt that it would best be taken care of with immediate excision under anesthesia if feasible. Arrangements were made. . Operative findings:: Consistent with moderately large sebaceous cyst . Operative note:: Consent was obtained patient was taken to the operating room. He was given preoperative intravenous antibiotics. Anesthesia was induced via LMA. He was positioned in the left lateral position. The area was prepped and draped in the standard surgical fashion. Skin was marked with a skin marker to abdifatah the boundaries of the palpable lesion and for extension of the incision placed in the outpatient office. Sutures were removed. Incision was extended. Dissection was carried down through full-thickness of the skin to cyst capsule. This appeared to be a complex sebaceous cyst. Dissection was carried out using mostly scissor dissection with some use of scalpel dissection. No clear skin punctum was identified. There was some disruption of the cyst capsule but no appreciable spillage of the contained waxy caseous material. Cyst was sent off as a specimen. Inspection was carried out of the overlying skin and there was a possible skin punctum but this was unclear. Wound was irrigated with saline. Hemostasis was achieved with electrocautery. Local anesthetic was infiltrated. Deep dermal tissues were closed with interrupted 3-0 Vicryl. Skin was closed with interrupted 4-0 nylon. Clean dry sterile dressing was applied. . Condition: stable Disposition: PACU Complications:: None immediately apparent
[2025-03-25 12:32] VITALS: BP 158/92; PULSE 61; RESP 18; TEMP 36.3; O2SAT 96
--- NOTE | 2025-03-25 12:32 | EXP.ANES.II ---
[facility] Anesthesia Record Part II Anesthesia Record Part II Discharge Time: 13:35 Destination: Surgical Day Care (OP Surgery) PACU nurse assessment reviewed?: Yes Patient Condition:: Good Anesthesia Complications:: None Swallowing reflex intact?: Yes Airway Patency: Patent Cyanosis?: No Blood Pressure: 158/92 SaO2: 96 Respiratory Rate: 18 Pulse Rate: 61 Temperature: 97.4 F Mental Status: Alert & Oriented Pain level:: 0 Nausea and/or vomitting:: None Intake, IV Amount: 0 Hydration: Adequate
== END 2025-03-22 14:10 | disposition home or self-care (01) ==
PROVIDERS: PCP Family Medicine; Visit Provider Surgery
PROC: (CPT 11406; principal; 2025-03-22 12:00)
DX: L72.0 Epidermal cyst (principal); I10 Essential (primary) hypertension; E78.5 Hyperlipidemia, unspecified; I25.10 Atherosclerotic heart disease of native coronary artery without angina pectoris; Z87.891 Personal history of nicotine dependence; Z79.899 Other long term (current) drug therapy; Z79.82 Long term (current) use of aspirin
CPT/HCPCS: 11406; 12032; 80048; 85025; J0690; J2003; J2250; J2704; J2795; J3010; J7120

== ENCOUNTER 2025-06-14 09:44 | Outpatient (CLI) | payer BC, SELFPAY ==
--- OUTSIDE RECORDS SUMMARY | 2024-01-02 11:15 | XMS_ITS ---
Author Organization [facility] Address [address] [place] [id number] Care Team Providers Care Director Veterinary Name Role Phone Viv Cabralory Primary Care Provider Allergies No Known Allergies Results Component Value Reference Range Notes P-Comprehensive Metabolic Pa joie (CMP) Reviewed date:01/09/2024 03:51:52 PM Interpretation:gluc 106, Cr 1.33 Performing Lab: Notes/Report: Test performed by [facility] [address] [place] [address] , [address], [place] [address] Gregg Toth MD, Raw Stock Drier Tender CLIA: [id number] Sodium 139 135-145 mmol/L Potassium 4.4 3.5-5.3 mmol/L Chloride 104 97-108 mmol/L CO2 24 22-32 mmol/L Glucose 106 65-99 mg/dL BUN 18 6-20 mg/dL Creatinine 1.33 0.70-1.30 mg/dL Calcium 9.5 8.6-10.4 mg/dL eGFR by Creatinine 63 >59 mL/min/1.73m2 Protein 7.2 6.0-8.3 g/dL Albumin 4.5 3.5-5.3 g/dL Alkaline Phosphatase 86 40-129 IU/L ALT (SGPT) 26 <5-55 IU/L AST (SGOT) 22 <5-46 IU/L Bilirubin, Total 0.3 <0.2-1.2 mg/dL A/G Ratio 1.7 1.1-2.5 mg/dL REASON FOR VISIT 6 months, Needs labs, colon cancer screening, Tdap, & shingles vaccine Medications Medication SIG (Take, Route, Frequency, Duration) Notes Start Date End Date Status Dutasteride-Tamsulosin HCl 0.5-0.4 MG 1 capsule Orally Once a day; Duration: 90 days 04/28/2023 Active Bisoprolol Fumarate 5 MG 1 tab(s) orally once a day Active Omeprazole 20 MG 1 capsule 30 minutes before morning meal Orally Once a day; Duration: 90 days Active Aspirin Low Dose 81 MG 1 tab(s) orally o nce a day; Duration: 30 day(s) Active Atorvastatin Calcium 20 MG 1 tab(s) oral ly once a day; Duration: 30 day(s) Active Ramipril 2.5 MG 1 capsule Orally Onc e a day; Duration: 30 day(s) Active Bisoprolol Fumarate 5 MG 1 tablet Orally Once a day; Duration: 30 day(s) Active Social History Tobacco Use: Social History Observation Description Date Smoking Status WARNING: Information temporarily unavailable CURRENT TOBACCO USE: Question Answer Notes Are you a: stopped smoking 2014 Vital Signs Weight 225.0 lbs 01/02/2024 Blood pressure systolic 120 mm Hg 01/02/20 24 Blood pressure diastolic 72 mm Hg 024 Heart Rate 57 /min 01/02/2024 Height 68 in 01/02/2024 BMI 34.21 kg/m2 01/02/2024 Encounters Encounter Location Date Provider Diagnosis [facility] [address] [facility] [address] [facility] [address] [place] [id number] 01/02/2024 Viv Cabral Urinary stream slowi ng R39.198 and Primary hypertension I10 Assessments Encounter Date Diagnosis (ICD Code) Assessment Notes Treatment Notes Treatment Clinical Notes Section Notes 01/02/2024 Urinary stream slowing (ICD-10 - R39.198) 01/02/2024 Primary hypertension (ICD-10 - I10) Plan Of Treatment Next Appt Details Follow Up: 6 Months, Reason: Provider Name:Viv Tate er, 06/24/2025 11:15:00 AM, [address] [facility] [address] [facility], [address], [place], [id number], Progress Notes * Anival CORCORAN CDOB:[birth year] (54 yo M)Acc No.[id number]:01/02/2024 Progress Notes Patient: Anival PITTMAN Provider: Viv Cabral M.D. :1970 A ge:53 Y S ex:Male Date:01/02/2024 Address:[address] [id number] Subjective: * Chief Complaints: * 1 . 6 months. 2. Needs labs, colon cancer screening, Tdap, & shingles vaccine. * HPI: Vic ortiz Reproductive: The pt is here for a follow up on BPH. Pt states the Dutasteride/Tamsulosin has helped. Pt states the urine flow has improved. * ROS: D ERMATOLOGY: no R mar. n o H taylor. G ASTROENTEROLOGY: no N ausea. n o V omiting. n o D iarrhea.? U ROLOGY: no D ifficulty urinating. n o B lood in urine. * Medical History: A ug , 2009 heart cath [facility] in [place], Noncritical CAD multiple 20% lesions , Adacel 2014. * Surgical History: w isdom teeth 2000, circumcision , Broken Right ankle with placement of plate 03/2015, hernia 2017, Heart Cath 02/2020, cardic stent x1, Dr. Hughes 03/07/2020. * Hospitalization/Major Diagno stic Procedure: n one , [facility]-chest pressure 02/03, [facility], for her[facility] , [facility] ER - Injured finger on Left Hand August 2016, [facility]- Chest pain 02/11/2020. * Family History: F ather: alive. M other: alive. P aternal Grand Father: . P aternal Grand Mother: . M aternal Grand Father: . M aternal Grand Mother: alive. S iblings: alive. C hildren: alive. 1 sister(s) . 2 son(s) . . * Social History: C URRENT TOBACCO USE A re you a: stopped smoking 2014. C affeine: yes, frequency:. Marital Status: Single. Past smoking status: yes, PPD: , years: ,determination:. Alcohol: socially, Type: , Frequency: ,Years: , Determination:. * Medications: T aking Bisoprolol Fumarate 5 MG Tablet 1 tablet Orally Once a day , Taking Ramipril 2.5 MG Capsule 1 capsule Orally Once a day , Taking Atorvastatin Calcium 20 MG Tablet 1 tab(s) orally once a day , Taking Aspirin Low Dose 81 MG Tablet Delayed Release 1 tab(s) orally once a day , Taking Bisoprolol Fumarate 5 MG Tablet 1 tab(s) orally once a day , Taking Dutasteride-Tamsulosin HCl 0.5-0.4 MG Capsule 1 capsule Orally Once a day , Taking Omeprazole 20 MG Capsule Delayed Release 1 capsule 30 minutes before morning meal Orally Once a day , Discontinued Plavix 75 MG Tablet 1 tab(s) orally once a day , Discontinued Tamsulosin HCl 0.4 MG Capsule 1 cap(s) orally once a day , Discontinued Brilinta 90 MG Tablet 1 tab(s) orally 2 times a day , Discontinued Fluticasone Propionate 50 MCG/ACT Suspension 1 spray(s) intranasally once a day , Discontinued Loratadine-Pseudoephedrine ER 10-240 MG Tablet Extended Release 24 Hour 1 tab(s) orally once a day , Medication List reviewed and reconciled with the patient * Allergies: N .K.D.A. Objective: * Vitals: W t:225.0, Temp:98.1, BP:120/72, HR:57, Nurse:ESDRAS, Ht: 68, BMI:34.21. * Examination: G eneral Examination: General Appearance: N AD. H EENT: u nremarkable.?Oral cavity: n o lesions, mucosa moist and WNL, no erythema. N owen: s upple, no lymphadenopathy. C hest: n ormal shape and expansion. H eart: R SR. L ungs: c lear to auscultation. A bdomen: soft and nontender. N eurologic Exam: I ntact, gait normal. S kin: n ormal, no rash. 1.5 cm cyst of the right upper back. Not inflammed. P eripheral pulses: n ormal . E xtremities: n o leg edema. ? Assessment: * Assessment: 1. U rinary stream slowing - R39.198 (Primary) 2 . P rimary hypertension - I10 Plan: * Treatment: Value Reference Range A /G Ratio 1.7 1.1-2.5 - mg/dL * A lbumin 4.5 3.5-5.3 - g/dL * A lkaline Phosphatase 86 40-129 - IU/L * A LT (SGPT) 26 <5-55 - IU/L * A ST (SGOT) 22 <5-46 - IU/L * B ilirubin, Total 0.3 <0.2-1.2 - mg/dL * B UN 18 6-20 - mg/dL * C alcium 9.5 8.6-10.4 - mg/dL * C hloride 104 97-108 - mmol/L * C O2 24 22-32 - mmol/L * C reatinine 1.33 H 0.70-1.30 - mg/dL * G lucose 106 H 65-99 - mg/dL * P otassium 4.4 3.5-5.3 - mmol/L * S odium 139 135-145 - mmol/L * P rotein 7.2 6.0-8.3 - g/dL * e GFR by Creatinine 63 >59 - mL/min/1.73m2 * Elsie Luna 01/09/2024 3:51: 25 PM >See phone encounter * Follow Up: 6 Months * Images: Billing Information: * Visit Code: 89659 Office Visit, Est Pt., Level 3. * Procedure Codes: * Electronic signature of Viv Cabral MD on 06/14/2025 at 09:48 AM EST Sign off status: Pending * Provider: Viv Cabral M.D. Date: 0 01/02/2024 Generated for Ernestoi lucy/Marry/eTransmitting on: 1 08/15/2024 09:48 AM EST History and Physical Notes * Examination Category Sub-Category Detail Notes Category Not es General Examination HEENT: unremarkable Heart: RSR Lungs: clear to auscultatio n Abdomen: soft and nontender Extremities: no leg edema General Appearance: NAD Skin: normal, no rash. 1.5 cm cyst of the right upper back. Not inflammed Neurologic Exam: Intact, gait normal Neck: supple, no lymphaden opathy Oral cavity: no lesions, mucosa m oist and WNL, no erythema Peripheral pulses: normal Chest: normal shape and exp ansion
--- OUTSIDE RECORDS SUMMARY | 2024-07-09 11:00 | XMS_ITS ---
Author Organization [facility] Address [address] [facility] [address] [place] [id number] Care Team Providers Care Elevator Constructor Hydraulic Name Role Phone Misha Viv BeltranFamilia Primary Care Provider Allergies No Known Allergies Results Component Value Reference Range Notes P-Comprehensive Metabolic Pa joie (CMP) Reviewed date:07/13/2024 09:17:24 AM Interpretation:Normal Performing Lab: Notes/Report: Test performed by [facility] [address] [place] [address] , [address], [place] [address] Gregg Toth MD, Room Cleaner CLIA: [id number] Sodium 141 135-145 mmol/L Potassium 5.0 3.5-5.3 mmol/L Chloride 104 97-108 mmol/L CO2 27 22-32 mmol/L Glucose 86 65-99 mg/dL BUN 11 6-20 mg/dL Creatinine 1.29 0.70-1.30 mg/dL Calcium 8.8 8.6-10.4 mg/dL eGFR by Creatinine 65 >59 mL/min/1.73m2 Protein 7.1 6.0-8.3 g/dL Albumin 4.3 3.5-5.3 g/dL Alkaline Phosphatase 79 40-129 IU/L ALT (SGPT) 20 <5-55 IU/L AST (SGOT) 16 <5-46 IU/L Bilirubin, Total 0.5 <0.2-1.2 mg/dL A/G Ratio 1.5 1.1-2.5 P-PSA Reviewed date:07/13/2024 09:17:24 AM Interpretation:Normal Performing Lab: Notes/Report: Test performed by [facility] [address] [place] [address] , [address], [place] [address] Gregg Toth MD, Room Cleaner CLIA: [id number] PSA 0.15 <4.00 ng/mL Please note this is an ultrasensitive PSA assay with a lower limit of detection of 0.014 ng/mL. This test is performed by the [employer] ECLIA methodology. Values obtained with different assay methods or kits cannot be directly compared. REASON FOR VISIT 6 months cheeck up, Needs labs with PSA, colon cancer screening, Tdap, & shingles vaccine Medications Medication SIG (Take, Route, Frequency, Duration) Notes Start Date End Date Status Bisoprolol Fumarate 10 MG 1 tablet Orall y Once a day Active Omeprazole 40 MG one Orally Once a da y; Duration: 90 days 07/09/2024 Active Dutasteride-Tamsulosin HCl 0.5-0.4 MG 1 capsule Orally Once a day; Duration: 90 days Active Aspirin Low Dose 81 MG 1 tab(s) orally o nce a day; Duration: 30 day(s) Active Atorvastatin Calcium 20 MG 1 tab(s) oral ly once a day; Duration: 30 day(s) Active Ramipril 2.5 MG 1 capsule Orally Onc e a day; Duration: 30 day(s) Active Immunizations Vaccine Route Administration Date Status Comme nts Tetanus Tdap-Adacel (over 7yrs) IM Intramuscular 07/09/2024 Administered Social History Tobacco Use: Social History Observation Description Date Smoking Status WARNING: Information temporarily unavailable CURRENT TOBACCO USE: Question Answer Notes Are you a: stopped smoking 2014 Problems Problem Type SNOMED Code ICD Code Onset Dates Problem Status W/U Status Risk Notes Problem Benign prostatic hypertrophy without outflow obstruction ([id number]) Benign prostatic hyperplasia without lower urinary tract symptoms (N40.0) Active confirmed Vital Signs Weight 236.4 lbs 07/09/2024 Blood pressure systolic 130 mm Hg 07/09/19 25 Blood pressure diastolic 70 mm Hg 025 Heart Rate 57 /min 07/09/2024 Height 68 in 07/09/2024 BMI 35.94 kg/m2 07/09/2024 Encounters Encounter Location Date Provider Diagnosis [facility] [address] [place] [id number] 07/09/2024 Viv Cabral Primary hypertension I10 ; Coronary artery disease involving [place] coronary artery of [place] heart without angina pectoris I25.10 ; Benign prostatic hyperplasia without lower urinary tract symptoms N40.0 ; GERD without esophagitis K21.9 and Encounter for immunization Z23 Assessments Encounter Date Diagnosis (ICD Code) Assessment Notes Treatment Notes Treatment Clinical Notes Section Notes 07/09/2024 Primary hypertension (ICD-10 - I10) 07/09/2024 Coronary artery disease involving [place] coronary artery of [place] heart without angina pectoris (ICD-10 - I25.10) 07/09/2024 Benign prostatic hyperplasia without lower urinary tract symptoms (ICD-10 - N40.0) 07/09/2024 GERD without esophagitis (ICD-10 - K21.9) 07/09/2024 Encounter for immunization (ICD-10 - Z23) Plan Of Treatment Medication Medication Name Sig Start Date Stop Date Notes Omeprazole 20 mg TAKE 1 CAPSULE DAILY 30 MINUTES BEFORE MORNING MEAL Omeprazole 40 MG one Orally Once a day; Duration: 90 days 07/09/2024 Next Appt Details Follow Up: 6 Months, Reason: Provider Name:Viv Tate er, 06/24/2025 11:15:00 AM, [address] [facility], [address] , [place], [id number], Progress Notes * JEWELLAnival CDOB:[birth year] (54 yo M)Acc No.[id number]:07/09/2024 Progress Notes Patient: Anival PITTMAN Provider: Viv Cabral M.D. :1970 A ge:53 Y S ex:Male Date:07/09/2024 Address:[address] [place] [address] [id number] Subjective: * Chief Complaints: * 1 . 6 months cheeck up. 2. Needs labs with PSA, colon cancer screening, Tdap, & shingles vaccine. * HPI: C ardiology: The patient is here for a check up on Hypertension and Hyperlipidemia. Pt states he doing good and denies any new concerns. Pt is not fasting. Denies : Chest Pain. D enies : Short of Breath. D enies : Dizziness. D enies : Palpitations. M diana Reproductive: He may be required to switch prostate medication due to insurance coverage. * ROS: D ERMATOLOGY: no R mar. n o H taylor. G ASTROENTEROLOGY: no N ausea. n o V omiting. n o D iarrhea.? U ROLOGY: no D ifficulty urinating. n o B lood in urine. * Medical History: A ug 18, 2009 heart cath [facility] in [place], Noncritical CAD multiple 20% lesions , Adacel 2014, 02/2020 Coronary Stent placement, Ellen, Tdap 07/09/2024, 06/13/2024 4mm lung nodule RLL. * Surgical History: w isdom teeth 2000, circumcision , Broken Right ankle with placement of plate 03/2015, hernia 2017, Heart Cath 02/2020, cardic stent x1, Dr. Hughes 03/07/2020, EGD, Dr. Glover 06/11/2021, Colonoscopy, Dr. Glover 2020. * Hospitalization/Major Diagno stic Procedure: n one , [facility] pressure 02[facility]03[facility], for her[facility] , [facility] - Injured finger on Left Hand August 2016, [facility]- Chest pain 02/11/2020. * Family History: [...] Determination:. * Medications: T aking Bisoprolol Fumarate 10 MG Tablet 1 tablet Orally Once a [...] Once a day , Taking Omeprazole 20 mg Capsule Delayed Release TAKE 1 CAPSULE DAILY 30 MINUTES BEFORE MORNING MEAL , Medication List reviewed and reconciled with the patient * Allergies: N .K.D.A. Objective: * Vitals: W t:236.4, Temp:98.2, BP:130/70, HR:57, Nurse:ESDRAS, Ht: 68, BMI:35.94. * Examination: G eneral Examination: General Appearance: [...] normal. S kin: n ormal, no rash. . P eripheral pulses: n ormal . E xtremities: n o leg edema. Assessment: * Assessment: 1. P rimary hypertension - I10 (Primary) 2 . C oronary artery disease involving [place] coronary artery of [place] heart without angina pectoris - I25.10 3 .?Benign prostatic hyperplasia without lower urinary tract symptoms - N40.0 4 . G ERD without esophagitis - K21.9 5 . E ncounter for immunization - Z23 ? Plan: * Treatment: Value Reference Range A /G Ratio 1.5 1.1-2.5 - * A lbumin 4.3 3.5-5.3 - g/dL * A lkaline Phosphatase 79 40-129 - IU/L * A LT (SGPT) 20 <5-55 - IU/L * A ST (SGOT) 16 <5-46 - IU/L * B ilirubin, Total 0.5 <0.2-1.2 - mg/dL * B UN 11 6-20 - mg/dL * C alcium 8.8 8.6-10.4 - mg/dL * C hloride 104 97-108 - mmol/L * C O2 27 22-32 - mmol/L * C reatinine 1.29 0.70-1.30 - mg/dL * G lucose 86 65-99 - mg/dL * P otassium 5.0 3.5-5.3 - mmol/L * S odium 141 135-145 - mmol/L * P rotein 7.1 6.0-8.3 - g/dL * e GFR by Creatinine 65 >59 - mL/min/1.73m2 * Lisset Zhou 07/13/2024 9:1 7:14 AM >Patient informed of normal results. 2.?Benign prostatic hyperplasia without lower urinary tract symptoms?LAB: P-PSA (Collection Date & Time - 07/09/2024 03:20 PM)?Normal* Value Reference Range P SA 0.15 <4.00 - ng/mL * Lisset Zhou 07/13/2024 9:1 7:14 AM >Patient informed of normal results. 3.?GERD without esophagitis? Stop Omeprazole Capsule Delayed Release, 20 mg, TAKE 1 CAPSULE DAILY 30 MINUTES BEFORE MORNING MEAL;?Start Omeprazole Capsule Delayed Release, 40 MG, one, Orally, Once a day, 90 days, 90, Refills 1.?? * Immunizations: Tetanus Tdap-Adacel (over 7yrs) : 0.5 mL (Route: Intramuscular) given by Lisset [place] on Right Deltoid (Encounter for immunization) * Follow Up: 6 Months * Images: Billing Information: * Visit Code: 02350 Office Visit, Est Pt., Level 4. * Procedure Codes: * Electronic signature of Viv Cabral MD on 06/14/2025 at 09:47 AM EST Sign off status: Pending * Provider: Viv Cabral M.D. Date: 0 07/09/2024 Generated for Ernestoi ng/Marry/eTransmitting on: 1 08/15/2024 09:47 AM EST History and Physical Notes * HPI (History of Present Illness) Category Sub-Category Detail Notes Category Not es Cardiology Short of Breath Chest Pain Palpitations Dizziness Examination Category Sub-Category Detail Notes Category Not es General Examination HEENT: unremarkable Heart: RSR Lungs: clear to auscultatio n Abdomen: soft and nontender Extremities: no leg edema General Appearance: NAD Skin: normal, no rash. Neurologic Exam: Intact, gait normal Neck: supple, no lymphaden opathy Oral cavity: no lesions, mucosa m oist and WNL, no erythema Peripheral pulses: normal Chest: normal shape and exp ansion
--- OUTSIDE RECORDS SUMMARY | 2025-01-07 11:15 | XMS_ITS ---
[facility] Address [address] [place] [id number] Care Team Providers Care Clinical Audiologist Name Role Phone Viv Cabralory Primary Care Provider Allergies No Known Allergies Results Component Value Reference Range Notes P-Comprehensive Metabolic Pa joie (CMP) Reviewed date:01/11/2025 12:04:23 PM Interpretation:Normal Performing Lab: Notes/Report: Test performed by [facility] [address] [place] [address] , [address], [place] [address] Gregg Toth MD, Account Development Representative CLIA: [id number] Sodium 140 135-145 mmol/L Potassium 4.5 3.5-5.3 mmol/L Chloride 104 97-108 mmol/L CO2 25 20-32 mmol/L Glucose 84 65-99 mg/dL BUN 15 6-20 mg/dL Creatinine 1.06 0.70-1.30 mg/dL Calcium 9.2 8.6-10.4 mg/dL eGFR by Creatinine 82 >59 mL/min/1.73m2 Protein 7.0 6.0-8.3 g/dL Albumin 4.2 3.5-5.3 g/dL Alkaline Phosphatase 78 40-129 IU/L ALT (SGPT) 32 <5-55 IU/L AST (SGOT) 23 <5-46 IU/L Bilirubin, Total 0.4 <0.2-1.2 mg/dL A/G Ratio 1.5 1.1-2.5 REASON FOR VISIT 6 month check up, Needs labs, colon cancer screening, & shingles vaccine Medications Medication SIG (Take, Route, Frequency, Duration) Notes Start Date End Date Status Atorvastatin Calcium 20 MG 1 tab(s) oral ly once a day; Duration: 30 day(s) Active Aspirin Low Dose 81 MG 1 tab(s) orally o nce a day; Duration: 30 day(s) Active Tamsulosin HCl 0.4 MG 1 capsule Orally O nce a day at bedtime; Duration: 90 days 09/21/2024 Active Finasteride 5 MG 1 tablet Orally Once a day at bedtime; Duration: 90 days 09/21/2024 Active Omeprazole 40 MG 1 capsule 1/2 to 1 h our before morning meal Orally Once a day; Duration: 90 days Active Bisoprolol Fumarate 10 MG 1 tablet Orall y Once a day Active Ramipril 10 MG 1 capsule Orally Onc e a day; Duration: 30 days Active Social History Tobacco Use: Social History Observation Description Date Smoking Status WARNING: Information temporarily unavailable CURRENT TOBACCO USE: Question Answer Notes Are you a: stopped smoking 2014 Problems Problem Type SNOMED Code ICD Code Onset Dates Problem Status W/U Status Risk Notes Problem Loss of sense of smell (50886679) Loss of sense of smell (R43.0) Active confirmed Vital Signs Weight 223.6 lbs 01/07/2025 Blood pressure systolic 120 mm Hg 01/08/20 25 Blood pressure diastolic 72 mm Hg 025 Heart Rate 51 /min 01/07/2025 Height 68 in 01/07/2025 BMI 33.99 kg/m2 01/07/2025 Encounters Encounter Location Date Provider Diagnosis [facility] [address] [phone] 01/07/2025 Viv Cabral Primary hypertension I10 ; GERD without esophagitis K21.9 ; Benign prostatic hyperplasia without lower urinary tract symptoms N40.0 ; Loss of sense of smell R43.0 and Sebaceous cyst L72.3 Assessments Encounter Date Diagnosis (ICD Code) Assessment Notes Treatment Notes Treatment Clinical Notes Section Notes 01/07/2025 Primary hypertension (ICD-10 - I10) continue current therapy 01/07/2025 GERD without esophagitis (ICD-10 - K21.9) 01/07/2025 Benign prostatic hyperplasia without lower urinary tract symptoms (ICD-10 - N40.0) 01/07/2025 Loss of sense of smell (ICD-10 - R43.0) 01/07/2025 Sebaceous cyst (ICD-10 - L72.3) Plan Of Treatment Treatment Notes Assessment Notes Primary hypertension continue current erapy Next Appt Details Follow Up: office surgery, Sahara tyler: Provider Name:Viv Tate er, 06/24/2025 11:15:00 AM, [address], [address], [place], [phone], Progress Notes * Anival CORCORAN CDOB:[birth year] (54 yo M)Acc No.[id number]:01/07/2025 Progress Notes Patient: Anival PITTMAN Provider: Viv Cabral M.D. :1970 A ge:54 Y S ex:Male Date:01/07/2025 Address:[address] [facility] [id number] Subjective: * Chief Complaints: * 1 . 6 month check up. 2. Needs labs, colon cancer screening, & shingles vaccine. * HPI: C ardiology: The patient is here for a check up on Hypertension and Hyperlipidemia. Pt states he doing good and denies any new concerns. Pt states he is not fasting. Denies : Chest Pain. D enies : Short of Breath. D enies : Dizziness. D enies : Palpitations. E NT/respiratory: Now using CPaP. Loss sense of smell with COVID. P ain: left sided neck pain. Declines X-ray. Injured his neck when 5 or 6 years old. * ROS: D ERMATOLOGY: no R mar. n o H taylor. G ASTROENTEROLOGY: no N ausea. n o V omiting. n o D iarrhea.? U ROLOGY: no D ifficulty urinating. n o B lood in urine. * Medical History: A ug [address] [facility] [place], Noncritical CAD multiple 20% lesions , Adacel 2014, 02/2020 Coronary Stent placement, Alisha Hughes 07/09/2024, 06/13/2024 4mm lung nodule RLL. * Surgical History: w isdom teeth 2000, circumcision , Broken Right ankle with placement of plate 03/2015, hernia 2018, Heart Cath 02/2020, cardic stent x1, Dr. Hughes 03/07/2020, EGD, Dr. Glover 06/11/2021, Colonoscopy, Dr. Glover 2020. * Hospitalization/Major Diagno stic Procedure: n one , [facility]-che[facility] pressure 02[facility]03, [facility], for her[facility] , [facility] - Injured finger on Left Hand August 2016, [place]- Chest pain 02/11/2020. * Family History: [...] Orally Once a day , Taking Ramipril 10 MG Capsule 1 capsule Orally Once a day , Taking Atorvastatin Calcium 20 MG Tablet 1 tab(s) orally once a day , Taking Aspirin Low Dose 81 MG Tablet Delayed Release 1 tab(s) orally once a day , Taking Tamsulosin HCl 0.4 MG Capsule 1 capsule Orally Once a day at bedtime , Taking Finasteride 5 MG Tablet 1 tablet Orally Once a day at bedtime , Taking Omeprazole 40 MG Capsule Delayed Release 1 capsule 1/2 to 1 hour before morning meal Orally Once a day , Medication List reviewed and reconciled with the patient * Allergies: N .K.D.A. Objective: * Vitals: W t: 223.6, Temp: 98.3, BP: 120/72, HR: 51, Nurse: ESDRAS, Ht: 68, BMI:33.99. * Examination: G eneral Examination: General Appearance: [...] rimary hypertension - I10 (Primary) 2 . G ERD without esophagitis - K21.9 3 . B enign prostatic hyperplasia without lower urinary tract symptoms - N40.0 4 . L oss of sense of smell - R43.0 5 . S ebaceous cyst - L72.3 Plan: * Treatment: Value Reference Range A /G Ratio 1.5 1.1-2.5 - * A lbumin 4.2 3.5-5.3 - g/dL * A lkaline Phosphatase 78 40-129 - IU/L * A LT (SGPT) 32 <5-55 - IU/L * A ST (SGOT) 23 <5-46 - IU/L * B ilirubin, Total 0.4 <0.2-1.2 - mg/dL * B UN 15 6-20 - mg/dL * C alcium 9.2 8.6-10.4 - mg/dL * C hloride 104 97-108 - mmol/L * C O2 25 20-32 - mmol/L * C reatinine 1.06 0.70-1.30 - mg/dL * G lucose 84 65-99 - mg/dL * P otassium 4.5 3.5-5.3 - mmol/L * S odium 140 135-145 - mmol/L * P rotein 7.0 6.0-8.3 - g/dL * e GFR by Creatinine 82 >59 - mL/min/1.73m2 * Lisset Zhou 01/11/2025 12 :04:11 PM EDT > Patient informed of normal results. Notes: continue current therapy?? * Procedure Codes: 1 036F TOBACCO NON-USER, 3074F SYST BP LT 130 MM HG, 3078F DIAST BP < 80 MM HG * Follow Up: o ffice surgery * Images: Billing Information: * Visit Code: 27769 Office Visit, Est Pt., Level 4. * Procedure Codes: 1036F TOBACCO NON-USER. 3074F SYST BP LT 130 MM HG. 3078F DIAST BP < 80 MM HG. * Electronic signature of Viv Cabral MD on 06/14/2025 at 09:47 AM EST Sign off status: Pending * Provider: Viv Cabral M.D. Date: 0 01/07/2025 Generated for Gurmeet ayala/Marry/eTransmitting on: 1 08/15/2024 09:47 AM EST History and Physical Notes * HPI (History of Present Illness) Category Sub-Category Detail Notes Category Not es ENT/respiratory Now using CPaP. Loss sense of smell with COVID. Cardiology Short of Breath Chest Pain Palpitations Dizziness Pain left sided neck pain. Declines X-ray. Injured his neck when 5 or 6 years old. Examination Category Sub-Category Detail Notes Category Not [...]
--- OUTSIDE RECORDS SUMMARY | 2025-03-22 03:00 | XMS_ITS ---
Author Organization [facility] Address [address] [place] [id number] Care Team Providers Care Building Performance Specialist Name Role Phone Viv Cabral Primary Care Provider Allergies No Known Allergies Reason For Referral Reason Dr. Triana will see the patient this morning to assess for definitive surgery. Diagnosis 1 Lipoma of back (D17. 1) [facility] Referring Provider First Name Viv Barbosa Referring Provider Last Name Misha Referring Provider Speciality Family Pra ctice Referral Priority Routine REASON FOR VISIT Lesion removal on back Medications Medication SIG (Take, Route, Frequency, Duration) Notes Start Date End Date Status Omeprazole 40 MG 1 capsule 1/2 to 1 h our before morning meal Orally Once a day; Duration: 90 days Active Tamsulosin HCl 0.4 MG 1 capsule Orally O nce a day at bedtime; Duration: 90 days 09/21/2024 Not-Taking Finasteride 5 MG 1 tablet Orally Once a day at bedtime; Duration: 90 days 09/21/2024 Not-Taking Aspirin Low Dose 81 MG 1 tab(s) orally o nce a day; Duration: 30 day(s) Active Bisoprolol Fumarate 10 MG 1 tablet Orall y Once a day Active Atorvastatin Calcium 20 MG 1 tab(s) orally once a day; Duration: 30 day(s) Active Ramipril 10 MG 1 capsule Orally Onc e a day; Duration: 30 days Active Social History Tobacco Use: Social History Observation Description Date Smoking Status WARNING: Information temporarily unavailable CURRENT TOBACCO USE: Question Answer Notes Are you a: stopped smoking 2014 Vital Signs Weight 227.8 lbs 03/22/2025 Blood pressure systolic 120 mm Hg 03/22/20 25 Blood pressure diastolic 70 mm Hg 025 Heart Rate 53 /min 03/22/2025 Height 68 in 03/22/2025 BMI 34.63 kg/m2 03/22/2025 Encounters Encounter Location Date Provider Diagnosis [facility] [address] [place] [id number] 03/22/2025 Viv Cabral Lipoma of back D17.1 Assessments Encounter Date Diagnosis (ICD Code) Assessment Notes Treatment Notes Treatment Clinical Notes Section Notes 03/22/2025 Lipoma of back (ICD-10 - D17.1) Plan Of Treatment Referrals Referral Date Details 03/22/2025 03/22/2025, Dr. Abel rodrigues will see the patient this morning to assess for definitive surgery. Next Appt Details Follow Up: 3 Months, Reason: Provider Name:Viv Tate er, 06/24/2025 11:15:00 AM, [address] [facility] [address] [facility], [address], [place], [id number], Procedure Notes * Category Sub-Category Detail Notes Excision, skin lesion Consent: informed c onsent obtained, Photo taken of lesion Prep: Betadine Anesthesia: field block, 1% lido marii Incision size: #15 blade used to ma ke a transverse 2 cm incision intto the lesion. The lesion is identified, at that point as a lipoma, which would require more involved surgery to excise completely. This was explained to the patient who voiced his understanding. The wound was then closed using 5-0 nylon materil, 7 stitches. Reapproximated with: nylon suture 5-0 Number of sutures placed: 7 Post-procedure: H2O2, dressing appli ed, patient tolerated procedure well, instructed in wound care Progress Notes * JEWELL Anival CDOB:[birth year] (54 yo M)Acc No.[id number]:03/22/2025 Progress Notes Patient: Anival PITTMAN Provider: Viv Cabral M.D. :1970 A ge:54 Y S ex:Male Date:03/22/2025 Address:[address] [id number] Subjective: * Chief Complaints: * 1 . Lesion removal on back. * HPI: D ermatology: This is cyst vs. lipoma. I recommended referral to surgery, but patient requested that I attempt removal. 54 year old male presents with c/o cyst T he patient is here today for a minor surgery to remove a sebaceous cyst of his back. Pt states the cyst ic non tender and firm. * ROS: C ARDIOLOGY: no C hest pain. n o S hortness of breath. ? C [facility]STIT[facility]: [facility]No, Change in medication since last visit? No, Are you taking antibiotics?No, Are you taking steroids? No. G ASTROENTEROLOGY: no N ausea. n o V omiting. n o D iarrhea.? U ROLOGY: no D ifficulty urinating. n o B lood in urine. * Medical History: A ug 18, 2009 heart cath [facility] in [place], Noncritical CAD multiple 20% [...] Injured finger on Left Hand August 2016, [facility]- Chest pain 02/11/2020. * Family History: [...] tab(s) orally once a day , Taking Omeprazole 40 MG Capsule Delayed Release 1 capsule 1/2 to 1 hour before morning meal Orally Once a day , Not-Taking Tamsulosin HCl 0.4 MG Capsule 1 capsule Orally Once a day at bedtime , Not-Taking Finasteride 5 MG Tablet 1 tablet Orally Once a day at bedtime , Medication List reviewed and reconciled with the patient * Allergies: N .K.D.A. Objective: * Vitals: W t: 227.8, Temp: 98.6, BP: 120/70, HR: 53, Nurse: ESDRAS, Ht: 68, BMI:34.63. * Examination: G eneral Examination: General Appearance: N AD, appears healthy, pleasant, Color good. H eart: R SR, no murmurs. S kin: 3 .5 raised lesion of the right upper back.? firm, rubbery in consistancy.. * Physical Examination: Drawing:[id number] Assessment: * Assessment: 1. L ipoma of back - D17.1 (Primary) Plan: * Treatment: * Procedures: E xcision, skin lesion: Consent: i nformed consent obtained, Photo taken of lesion.?Prep: B etadine. A nesthesia: f ield block, 1% lidocaine. I ncision size: # 15 blade used to make a transverse 2 cm incision intto the lesion. The lesion is identified, at that point as a lipoma, which would require more involved surgery to excise completely. This was explained to the patient who voiced his understanding. The wound was then closed using 5-0 nylon materil, 7 stitches. . R eapproximated with: n ylon suture 5-0. N umber of sutures placed: 7 . P ost-procedure: H 2O2, dressing applied, patient tolerated procedure well, instructed in wound care. * Follow Up: 3 Months * Images: Billing Information: * Visit Code: 27361 Office Visit, Est Pt., Level 4. * Procedure Codes: * Electronic signature of Viv Cabral MD on 06/14/2025 at 09:48 AM EST Sign off status: Pending * Provider: Viv Cabral M.D. Date: 0 03/22/2025 Generated for Gurmeet ayala/Marry/Gonzalosmitting on: 1 08/15/2024 09:48 AM EST History and Physical Notes * HPI (History of Present Illness) Category Sub-Category Detail Notes Category Not es Dermatology cyst The patient is h ere today for a minor surgery to remove a sebaceous cyst of his back. Pt states the cyst ic non tender and firm Examination Category Sub-Category Detail Notes Category Not es General Examination Heart: RSR, no murmurs General Appearance: NAD, appears healthy , pleasant, Color good Skin: 3.5 raised lesion of the right upper back. firm, rubbery in consistancy. Consultation Request Notes Referral Date Referring Provider Referred Provider Not es 03/22/[address] Allran will see the patient this morning to assess for definitive surgery.
--- OUTSIDE RECORDS SUMMARY | 2025-06-14 09:47 | XMS_ITS | Encounter Summary ---
Author Organization [employer] ([place], [place], [place], [place], [place]) Address [address] [place] [address] Care Team Providers Care Chief Accountant Name Role Phone Unavailable Primary Care Provider Unavailabl e Encounter Details Date Type Department Care Team (Late st Contact Info) Description 02/11/2020 Transcribed Document [facility] [place] [facility] [address] [place] [address] ProviderMegha MD [address] [place] [address] Social History Tobacco Use Types Packs/Day Years Used Date Smoking Tobacco: Never Assessed Sex and Gender Information Value Date Recorded Sex Assigned at Male 12/24/2021 6:31 PM CDT Legal Sex Male 7:07 PM CDT Gender Identity Male 12/24/2021 6:31 PM CDT Sexual Orientation Not on file documented as of this encounter Miscellaneous Notes * Cerner Conversion Note - Historical ProviderMD - 02/11/2020 10:36 AM CDT ED Discharge Entered On: 02/11/2020 10:40 EDT Performed On: 02/11/2020 10:36 EDT by Funmi Randolph Office Helper Clerical Process Patient Disposition : Discharge Personal Belongings With Patient : Yes Patient Education Completed : Yes Teaching Evaluation : Verbalizes understanding IV Discontinued : Yes Nursing Documentation Completed : Yes Funmi Randolph Rn - 02/11/2020 10:36 EDT ED Discharge Discharge To : Home with ambulatory/outpatient follow-up Mode Of Departure : Ambulatory Discharge Instructions Reviewed With, Opportunity For Questions Given : Patient Prescriptions Given to Patient : No Funmi Randolph Rn - 02/11/2020 10:36 EDT documented in this encounter Plan of Treatment Not on file documented as of this encounter Visit Diagnoses Not on filedocumented in this encounter
--- OUTSIDE RECORDS SUMMARY | 2025-06-14 09:47 | XMS_ITS | Encounter Summary ---
Author Organization [employer] ([place], [place], [place], [place], [place]) Address [address] [place] [address] Care Team Providers Care Lay Midwife Name Role Phone Unavailable Primary Care Provider Unavailabl e Encounter Details Date Type Department Care Team (Late st Contact Info) Description 02/11/2020 Transcribed Document [facility] Family Medicine [address] [place] [address] ProviderMegha MD [address] [place] [address] Social History Tobacco Use Types Packs/Day Years Used Date Smoking Tobacco: Never Assessed Sex and Gender Information Value Date Recorded Sex Assigned at Male 12/24/2021 6:31 PM CDT Legal Sex Male 7:07 PM CDT Gender Identity Male 12/24/2021 6:31 PM CDT Sexual Orientation Not on file documented as of this encounter Miscellaneous Notes * Cerner Conversion Note - Megha Rivera MD - 02/11/2020 10:29 AM CDT [facility] [place] [address] ANIVAL CORCORAN :1970 Visit Time:02/11/2020 Your Visit Summary Your Care Team Primary Provider: CLAUDETTE LUCIO MD Secondary Provider: Your Diagnosis Chest pain Hypertension Musculoskeletal chest pain Medical Information You may obtain a copy of your Emergency Department visit from Medical Records by calling the hospital phone number listed above and asking to be directed to the Medical Records Department. If you had special tests, such as EKG???s or X-rays, the interpretation of your tests given to you by the Emergency Department Physician is a preliminary report. Some fractures and illnesses fail to show up on preliminary tests. These will be reviewed again and we will call you if there are any new suggestions. If your symptoms continue notify your physician. After you leave, you should follow the instructions provided. What to do next Follow-Up Appointments Follow Up with CURTIS GANT When Within 2 to 3 days Where: [address] [facility] [address] [place] [id number]- Business (1) Allergies No Known Allergies Immunizations This Visit No Immunizations Found Medications What How Much When Instructions Next Dose acetaminophen-hydrocodone (acetaminophen-hydrocodone 325 mg-5 mg oral tablet) 1 Tablet(s) Oral Every 6 Hours as needed for for pain naproxen (naproxen 500 mg oral tablet) 1 Tablet(s) Oral Two Times A Day as needed for for pain The home medications listed are only as accurate as the information you provided. Please continue taking all of your medications prescribed by your Primary Care Provider unless specifically told to change or discontinue the medication. Please direct any questions regarding your home medications to your Primary Care Provider. Take your medications faithfully. Do NOT skip medication. Do NOT stop taking medications without the direction of a physician. Carry a list of your medications with you at all times, and take this medication list with you to your first follow up visit. Report any side effects. Avoid herbal remedies unless discussed with your physician. As part of your treatment plan, your physician may have prescribed a limited course of a controlled substance. This medication may be given to help people with moderate or severe pain or for other medical conditions, but there are risks involved with treatment. Common side effects may include nausea, constipation, drowsiness, sweating, itching, dry mouth, and rash. More serious side effects may include cognitive and motor impairment, like problems with thinking, concentrating, alertness, and movement (e.g. slowed reflexes), and driving and operating heavy machinery can be dangerous. It is important for you to talk to your physician if you have these side effects or questions. These controlled substances can produce physical dependence and be habit-forming if taken for an extended period of time, which means that the body has gotten used to them and may experience withdrawal symptoms if they are abruptly stopped. Withdrawal symptoms can include runny nose, sweating, goose bumps, diarrhea, abdominal cramping, rapid heartbeat, difficulty sleeping, and nervousness. Please dispose of unused and medications per pharmacy guidance. Test Results Laboratory or Other Results This Visit (last charted value for your 02/11/2020 visit) Hematology 02/11/2020 6:45 AM WBC: 6.5 K/uL -- Normal range between ( 3.6 and 9.5 ) RBC: 5.18 Million/uL -- Normal range between ( 4.20 and 5.70 ) Hct: 45.6 % -- Normal range between ( 40.1 and 51.0 ) Hgb: 15.6 g/dL -- Normal range between ( 13.7 and 17.5 ) Platelet Count: 198 K/uL -- Normal range between ( 163 and 369 ) MCH: 30.1 pg -- Normal range between ( 25.6 and 32.2 ) MCHC: 34.2 Gram/dL -- Normal range between ( 31.5 and 35.7 ) MCV: 88.0 fL -- Normal range between ( 79.0 and 94.8 ) Slide Review: No Eos %: 2.3 % -- Normal range between ( 0.0 and 7.0 ) Collier #: 0.70 K/uL -- Normal range between ( 0.16 and 1.00 ) Eos #: 0.15 -- Normal range between ( 0.00 and 5.00 ) Collier %: 10.8 % -- Normal range between ( 3.5 and 11.1 ) Baso %: 1.5 % -- Normal range between ( 0.0 and 2.0 ) Baso #: 0.10 -- Normal range between ( 0.00 and 2.00 ) RDW: 13.6 % -- Normal range between ( 11.7 and 14.9 ) Neut %: 49.0 % -- Normal range between ( 34.0 and 71.0 ) Neut #: 3.18 K/uL -- Normal range between ( 1.60 and 7.00 ) Lymph %: 36.4 % -- Normal range between ( 19.3 and 53.1 ) Lymph #: 2.36 K/uL -- Normal range between ( 1.00 and 3.50 ) MPV: 9.6 fL -- Normal range between ( 9.4 and 12.4 ) General Chemistry 02/11/2020 6:45 AM Creatinine Level: 1.20 mg/dL -- Normal range between ( 0.70 and 1.30 ) Sodium Level: 139 mmol/L -- Normal range between ( 136 and 146 ) Potassium Level: 3.9 mmol/L -- Normal range between ( 3.5 and 5.1 ) Chloride Level: 109 mmol/L -- Normal range between ( 102 and 112 ) Carbon Dioxide Level: 23 mmol/L -- Normal range between ( 21 and 32 ) Anion Gap: 11 -- Normal range between ( 9 and 20 ) Bilirubin Total: 0.5 mg/dL -- Normal range between ( 0.2 and 1.2 ) A/G Ratio: 0.9 -- Normal range between ( 1.1 and 2.5 ) ALT: 36 Units/Liter -- Normal range between ( 16 and 61 ) AST: 16 Units/Liter -- Normal range between ( 5 and 37 ) Globulin: 3.9 Gram/dL -- Normal range between ( 1.5 and 4.5 ) Alk Phos: 72 Units/Liter -- Normal range between ( 27 and 136 ) Bun/Creatinine: 13.3 -- Normal range between ( 8.0 and 20.0 ) Calcium Level: 8.3 mg/dL -- Normal range between ( 8.4 and 10.1 ) eGFR : >60 mL/min/1.73m2 eGFR NonAfrican: >60 mL/min/1.73m2 Glucose Level: 102 mg/dL -- Normal range between ( 74 and 106 ) Blood Urea Nitrogen: 16 mg/dL -- Normal range between ( 7 and 22 ) Protein Total: 7.6 Gram/dL -- Normal range between ( 6.4 and 8.2 ) Albumin Level: 3.7 Gram/dL -- Normal range between ( 3.4 and 5.0 ) Cardiac Specific Markers 02/11/2020 9:33 AM Troponin I Ultra: <0.015 ng/mL -- Normal range between ( 0.015 and 0.045 ) 02/11/2020 6:45 AM ProBNP: 33 pg/mL -- Normal range between ( 0 and 125 ) Diagnostic Radiology 02/11/2020 7:00 AM CR Chest 1 Vw Portable: CR Chest 1 Vw Portable Education Materials Chest Wall Pain Chest wall pain is pain in or around the bones and muscles of your chest. Sometimes, an injury causes this pain. Excessive coughing or overuse of arm and chest muscles may also cause chest wall pain. Sometimes, the cause may not be known. This pain may take several weeks or longer to get better. Follow these instructions at home: Managing pain, stiffness, and swelling ??? If directed, put ice on the painful area: ? Put ice in a plastic bag. ? Place a towel between your skin and the bag. ? Leave the ice on for 20 minutes, 2???3 times per day. Activity ??? Rest as told by your health care provider. ??? Avoid activities that cause pain. These include any activities that use your chest muscles or your abdominal and side muscles to lift heavy items. Ask your health care provider what activities are safe for you. General instructions ??? Take [id number] and prescription medicines only as told by your health care provider. ??? Do not use any products that contain nicotine or tobacco, such as cigarettes, e-cigarettes, and chewing tobacco. These can delay healing after injury. If you need help quitting, ask your health care provider. ??? Keep all follow-up visits as told by your health care provider. This is important. Contact a health care provider if: ??? You have a fever. ??? Your chest pain becomes worse. ??? You have new symptoms. Get help right away if: ??? You have nausea or vomiting. ??? You feel sweaty or light-headed. ??? You have a cough with mucus from your lungs (sputum) or you cough up blood. ??? You develop shortness of breath. These symptoms may represent a serious problem that is an emergency. Do not wait to see if the symptoms will go away. Get medical help right away. Call your local emergency services (911 in the [place] Do not drive yourself to the hospital. Summary ??? Chest wall pain is pain in or around the bones and muscles of your chest. ??? Depending on the cause, it may be treated with ice, rest, medicines, and avoiding activities that cause pain. ??? Contact a health care provider if you have a fever, worsening chest pain, or new symptoms. ??? Get help right away if you feel light-headed or you develop shortness of breath. These symptoms may be an emergency. This information is not intended to replace advice given to you by your health care provider. Make sure you discuss any questions you have with your health care provider. Document Released: 06/13/2006 Document Revised: 12/14/2018 Document Reviewed: 12/14/2018 [employer] Patient Education ?? 2020 [employer] Emergency Awareness and Preventative Care STROKE is an EMERGENCY Every Minute Counts Act FAST and Check for these signs: FACE Does the face look uneven? ARM Does one arm drift down? SPEECH Does their speech sound strange? TIME Call at any sign of stroke Stroke Risk Factors Atrial Fibrillation (irregular heartbeat) Diabetes Family history of stroke Heart Disease Heavy alcohol use High Blood Pressure High Cholesterol Physical inactivity and obesity Smoking Cigarette Smoking The facts are clear, cigarette smoking will shorten your life. Smoking can cause many illnesses along the way. As a healthcare provider, we recommend that you stop smoking. Assistance with quitting is available by contacting 0-919-BTZCNOW. This is a free resource providing counseling, support, and referral. Or you may contact your personal physician. [employer] Suicide Prevention Lifeline: The National Suicide Prevention Lifeline is a national network of local crisis centers that provides free and confidential emotional support to people in suicidal crisis or emotional distress 24 hours a day, 7 days a week. Don't Wait! Stop a Heart Attack Before it Starts What is a heart attack? A heart attack is damage or to a part of the heart from severely decreased or lack of blood flow to the heart. Over time, arteries can become narrow from the buildup of fat and cholesterol, which is called plaque. The plaque can rupture causing a blood clot to form. When the blood clot forms, the artery can become severely narrowed or completely blocked, causing a heart attack. Heart attack is the leading cause of in the [place]. 85% of muscle damage occurs within the first 2 hours. Delay in the recognition of heart attack symptoms increases the chances of . Know the early symptoms of a heart attack: Nausea Feeling of fullness in chest Jaw Pain Pain that travels down one or both arms Fatigue/being tired Anxiety Back Pain Chest pressure, squeezing, or discomfort Shortness of breath Sweating, or a cold sweat Feeling of impending doom There are unusual signs of a heart attack, too! Women, the elderly, and diabetics may present with atypical symptoms: Fainting/dizziness Weakness Confusion Risk Factors for a Heart Attack Some heart disease risk factors, such as age and family history, cannot be changed. Others, like smoking and lack of exercise, can be changed. Smoking High Cholesterol High Blood Pressure Family History Obesity Age Gender (Males are at higher risk) Lack of Exercise Diabetes Diet Stress Excessive Alcohol Intake If you or someone you know is experiencing the signs and symptoms of a heart attack, DON???T DELAY. Call immediately and seek help. If someone collapses, perform CPR! Do not attempt to drive if you are having symptoms of heart attack. Hands-Only CPR Why Hands-Only CPR? Hands-Only CPR has been shown to be as effective as conventional CPR for cardiac arrests that occur outside of a hospital. Survival depends on immediately receiving CPR from someone nearby. How do you perform Hands-Only CPR? There are two easy steps: Call if you see a teen or adult collapse Push hard and fast in the center of the chest at a beat of 100 beats per minute. Save a life! 4 WAYS TO GET AHEAD OF SEPSIS SEPSIS is a MEDICAL EMERGENCY. Time matters! Infections put you and your family at risk for a life-threatening condition called sepsis. Sepsis is the body's extreme response to an infection. It is life-threatening, and without timely treatment, sepsis can rapidly lead to tissue damage, organ failure, and . Sepsis happens when an infection you already have-in your skin, lungs, urinary tract or somewhere else-triggers a chain reaction throughout your body. 1 PREVENT INFECTIONS Take good care of chronic conditions. Talk to your doctor about getting the recommended vaccines. 2 PRACTICE GOOD HYGIENE Wash your hands frequently. Keep cuts or open sores clean and covered until they are healed. 3 KNOW THE SYMPTOMS Confusion or disorientation Shortness of breath High heart rate Fever, shivering, or feeling very cold Extreme pain or discomfort Clammy or sweaty skin 4 ACT FAST Get medical care IMMEDIATELY if you suspect sepsis or if you have an infection that is not getting better or is getting worse. To learn more about sepsis and how to prevent infections, visit www.cdc.gov/sepsis. The examination and treatment you have received in the Emergency Department has been done to provide an appropriate evaluation and stabilizing treatment on an emergency basis only. Given the limited resources, it is not meant to be a substitute for complete medical care. The follow-up doctor you named will receive a copy of your records and all test reports. IT IS IMPORTANT THAT YOU SCHEDULE A FOLLOW-UP APPOINTMENT AND ARE RE-EVALUATED. You should report any new complaints, symptoms, or remaining problems at that time. IT IS IMPOSSIBLE FOR THE EMERGENCY DEPARTMENT TO RECOGNIZE AND TREAT ALL ELEMENTS OF INJURY OR ILLNESS IN A SINGLE VISIT. If you have been referred to a specialist physician, it means that we believe you may have a condition that requires the expertise of a specialist. These physicians work in partnership with the hospital and have agreed to see referred patients in their office for further evaluation. KEEP IN MIND THAT THE SPECIALIST HAS HIS/HER OWN OFFICE POLICIES WHICH MAY REQUIRE PROPER INSURANCE OR PAYMENT UP FRONT BEFORE THE SPECIALIST WILL SEE YOU. It is your responsibility to call the specialist physician to make an appointment. We do not have the ability to refer patients to specialists/physicians that work with specific insurance companies. Please be advised that all financial charges or billing practices are determined by that practice, not the hospital. If your insurance company requires that you see a specialist from their approved list, it is your responsibility to contact your insurance company to make those arrangements. It is also your responsibility to follow any other requirements of your insurance company necessary to obtain coverage for claims submitted. We will bill your insurance; however, you are responsible today for any co-pay amounts. You will receive a separate bill for any services you may have received including: emergency, radiology, or pathology physicians. Patient Name:ANIVAL CORCORAN I have received this information and was given the opportunity to ask questions. Patient/Precast Molder Name: Patient/Precast Molder Signature: Relationship to Patient: Clinician/Hospital Precast Molder Signature: Please Provide a Telephone Number Where You Can Be Reached: Is it Permissible To Leave a Message? Date: documented in this encounter Plan of Treatment Not on file documented as of this encounter Visit Diagnoses Not on filedocumented in this encounter
--- OUTSIDE RECORDS SUMMARY | 2025-06-14 09:47 | XMS_ITS | Patient Health Record ---
[facility] Address [address] [place] [id number] Care Team Providers Care Tv Technician Name Role Phone Viv Cabral Primary Care Provider Allergies No Known Allergies Results Component Value Reference Range Notes P-Comprehensive Metabolic Pa joie (CMP) Reviewed date:07/13/2024 09:17:24 AM Interpretation:Normal Performing Lab: Notes/Report: Test performed by [facility] [address] , [address], [place] [address] Gregg Toth MD, Barrel Assembler CLIA: [id number] Sodium 141 135-145 mmol/L Potassium 5.0 3.5-5.3 [...] Interpretation:Normal Performing Lab: Notes/Report: Test performed by [facility] [address] [place] [address] [address], [place] [address] Gregg Toth MD, Barrel Assembler CLIA: [id number] PSA 0.15 <4.00 ng/mL Please note this is an ultrasensitive PSA assay with a lower limit of detection of 0.014 ng/mL. This test is performed by the [employer] ECLIA methodology. Values obtained with different assay methods or kits cannot be directly compared. P-Comprehensive Metabolic Pa joie (CMP) Reviewed date:01/11/2025 12:04:23 PM Interpretation:Normal Performing Lab: Notes/Report: Test performed by [facility], [facility] [address] [place] [address] , [address], [place] [address] Gregg Toth MD, Barrel Assembler CLIA: [id number] Sodium 140 135-145 mmol/L Potassium 4.5 3.5-5.3 [...] 0.4 <0.2-1.2 mg/dL A/G Ratio 1.5 1.1-2.5 Reason For Referral Reason Dr. Triana will see the patient this morning to assess for definitive surgery. Diagnosis 1 Lipoma of back (D17. 1) Referral Organization [facility] Referring Provider First Name Viv Barbosa Referring Provider Last Name Misha Referring Provider Speciality Family Pra ctice Referral Priority Routine Medications Medication SIG (Take, Route, Frequency, Duration) [...] at bedtime; Duration: 90 days 09/21/2024 Not-Taking Atorvastatin Calcium 20 MG 1 tab(s) orally once a day; Duration: 30 day(s) Active Aspirin Low Dose 81 MG 1 tab(s) orally o nce a day; Duration: 30 day(s) Active Bisoprolol Fumarate 10 MG 1 tablet Orall y Once a day Active Ramipril 10 MG 1 capsule Orally Onc e a day; Duration: 30 days Active Immunizations Vaccine Route Administration Date Status Comme nts COVID 19 Pfizer Unknown 07/01/2021 Administered Fluzone Quad (6months&older) IM Intramuscular 03/14/2020 Administered Hepatitis A (adult) Unknown 05/26/2018 Administered Hepatitis A (adult) Unknown 11/25/2018 Administered Hepatitis A (adult) Unknown 11/25/2018 Administered Tetanus Tdap-Adacel (over 7yrs) IM Intramuscular 07/09/2024 Administered Social History Tobacco Use: Social History Observation Description Date Smoking Status WARNING: Information temporarily unavailable CURRENT TOBACCO USE: Question Answer Notes Are you a: stopped smoking 2014 Problems Problem Type SNOMED Code ICD Code Onset Dates Problem Status W/U Status Risk Notes Problem Gastroesophageal reflux disease (616053845) GERD without esophagitis (K21.9) Active confirmed Problem Atherosclerotic heart disease of [place] coronary artery without angina pectoris (399435874125200) Coronary artery disease involving [place] coronary artery of [place] heart without angina pectoris (I25.10) Active confirmed Problem Hyperlipidaemia (66105873) Hyperlipidemia, unspecified hyperlipidemia type (E78.5) Active confirmed Problem Benign prostatic hypertrophy without outflow obstruction (119774735) Benign prostatic hyperplasia without lower urinary tract symptoms (N40.0) Active confirmed Problem Primary hypertension (55349186) Primary hypertension (I10) Active confirmed Problem Loss of sense of smell (67766490) Loss of sense of smell (R43.0) Active confirmed Problem Slowing of urinary stream (finding) (53507617) Urinary stream slowing (R39.198) Active confirmed Vital Signs Heart Rate 53 /min 03/22/2025 Blood pressure diastolic 70 mm Hg 03/22/2025 Height 68 in 03/22/2025 Blood pressure systolic 120 mm Hg 03/22/2025 Weight 227.8 lbs 03/22/2025 BMI 34.63 kg/m2 03/22/2025 Encounters Encounter Location Date Provider Diagnosis [facility] [address] [place] [id number] 07/09/2024 Viv Cabral Primary hypertension I10 ; Coronary artery disease involving [place] coronary artery of [place] heart without angina pectoris I25.10 ; Benign prostatic hyperplasia without lower urinary tract symptoms N40.0 ; GERD without esophagitis K21.9 and Encounter for immunization Z23 [facility] [address] [facility] [address] [place], [place] [id number] 01/07/2025 Viv Cabral Primary hypertension I10 ; GERD without esophagitis K21.9 ; Benign prostatic hyperplasia without lower urinary tract symptoms N40.0 ; Loss of sense of smell R43.0 and Sebaceous cyst L72.3 [facility] [address] [facility] [address] [place], [place] [id number] 03/22/2025 Viv Cabral Lipoma of back D17.1 [facility] [address] [facility] [address] [place], [place] [id number] 09/18/2024 Viv Cabral [facility] [facility] [facility] [address] [place] [id number] 01/22/2025 Viv Cabral Assessments Encounter Date Diagnosis (ICD Code) Assessment Notes Treatment Notes Treatment Clinical Notes Section Notes 07/09/2024 Coronary artery disease involving [place] coronary artery of [place] heart without angina pectoris (ICD-10 - I25.10) 07/09/2024 Primary hypertension (ICD-10 - I10) 01/07/2025 GERD without esophagitis (ICD-10 - K21.9) 01/07/2025 Primary hypertension (ICD-10 - I10) continue current therapy 03/22/2025 Lipoma of back (ICD-10 - D17.1) 01/07/2025 Benign prostatic hyperplasia without lower urinary tract symptoms (ICD-10 - N40.0) 07/09/2024 Benign prostatic hyperplasia without lower urinary tract symptoms (ICD-10 - N40.0) 07/09/2024 GERD without esophagitis (ICD-10 - K21.9) 01/07/2025 Loss of sense of smell (ICD-10 - R43.0) 01/07/2025 Sebaceous cyst (ICD-10 - L72.3) 07/09/2024 Encounter for immunization (ICD-10 - Z23) Plan Of Treatment Next Appt Details Provider Name:Viv Tate er, 06/24/2025 11:15:00 AM, [address], [address], [place], [id number], Insurance Providers Payer Name Payer Address Payer Phone Subscriber Number Group Number Insured Name Patient Relationship to Insured Coverage Start Date Coverage End Date [employer] [address] [place] [address] [id number] Anival Nelson Self - patient is the insured Medications Administered Medication Instructions Date of Administration Dosage Notes Bicillin LA 1,200,000 06/05/2015 2 mL Dexamethasone 06/18/2010 1 mL Dexamethasone 09/14/2011 Medical (General) History Medical History History ICD Code Feb 13, 2010 heart cath [facility] [place], Noncritical CAD multiple 20% lesions Adacel 02/2020 Coronary Stent placement, Vita [facility] Tdap 07/09/2024 06/13/2024 4mm lung nodule RLL Surgical History Surgery Date(Month/Year) wisdom teeth 2001 circumcision Broken Right ankle with placement of paramjit te 03/2015 hernia 2018 Heart Cath 02/2020 cardic stent x1, Dr. Hughes 03/07/2020 EGD, Dr. Glover 06/11/2021 Colonoscopy, Dr. Glover 2020 Hospitalization History Reason Date(Month/Year) [facility]- Chest pain 02/11/2020 [facility] - Injured finger on Left Hand Mar 2016 [facility] for hernia 3-[facility] 02/03 none
--- OUTSIDE RECORDS SUMMARY | 2025-06-14 09:48 | XMS_ITS | Encounter Summary ---
Author Organization [employer] ([place], [place], [place], [place], [place]) Address [address] [place] [address] Care Team Providers Care Field Artillery Radar Operator Name Role Phone Unavailable Primary Care Provider Unavailabl e Encounter Details Date Type Department Care Team (Late st Contact Info) Description 02/11/2020 Transcribed Document [facility] [place] [facility] [place] [address] ProviderMegha MD [address] [place] [address] Social History Tobacco Use Types Packs/Day Years Used Date Smoking Tobacco: Never Assessed Sex and Gender Information Value Date Recorded Sex Assigned at Male 12/24/2021 6:31 PM CDT Legal Sex Male 7:07 PM CDT Gender Identity Male 12/24/2021 6:31 PM CDT Sexual Orientation Not on file documented as of this encounter Miscellaneous Notes * Cerner Conversion Note - Megha ProviderMD - 02/11/2020 6:27 AM CDT ED Assessment Entered On: 02/11/2020 6:37 EDT Performed On: 02/11/2020 6:35 EDT by Jefferson Jackson RN ED Quick Look Assessment Level of Consciousness : Alert, Awake Affect/Behavior : Appropriate, Calm Orientation : Oriented x 4 Jefferson Jackson RN - 02/11/2020 6:35 EDT ED General-Functional Assess Information Obtained From : Patient Communication Barrier : None Primary Language : Irish Any Spiritual/Cultural Needs or Requests : No Currently in Unsafe Situation : No Jefferson Jackson RN - 02/11/2020 6:35 EDT Social Habits Smoking Status : Former smoker, quit more than 30 days ago Smokeless Tobacco Status : Never Desires Tobacco Cessation Calc : 0 Jefferson Jackson RN - 02/11/2020 6:35 EDT Social History (As Of: 02/11/2020 06:37:23 EDT) Home/Environment: Living situation: Home/Independent. (Last Updated: 09/11/2013 10:11:42 EDT by ERWIN POND PA) Cardiovascular ASMT, ED Cardiovascular Assessment WDL : RAMIN with exceptions (Comment: pt c/o mscp pressure in nature non radiating no soa [Jefferson Jackson RN - 02/11/2020 6:35 EDT] ) Cardiovascular Symptoms : Chest discomfort at rest, Chest discomfort with activity Jefferson Jackson RN - 02/11/2020 6:35 EDT Respiratory Respiratory Assessment WDL : Jefferson Mcclelland RN - 02/11/2020 6:35 EDT Gastrointestinal ED Gastrointestinal Assessment WDL : Jefferson Mcclelland RN - 02/11/2020 6:35 EDT Genitourinary Assessment, ED Genitourinary Assessment WDL : Jefferson Mcclelland RN - 02/11/2020 6:35 EDT Musculoskeletal Musculoskeletal Assessment WDL : Jefferson Mcclelland RN - 02/11/2020 6:35 EDT Integumentary Assessment Integumentary Assessment WDL : Jefferson Mcclelland RN - 02/11/2020 6:35 EDT Neurologic ASMT, ED Neurologic Assessment WDL : Jefferson Mcclelland RN - 02/11/2020 6:35 EDT documented in this encounter Plan of Treatment Not on file documented as of this encounter Visit Diagnoses Not on filedocumented in this encounter
--- OUTSIDE RECORDS SUMMARY | 2025-06-14 09:48 | XMS_ITS | Encounter Summary ---
Author Organization [employer] ([place], [place], [place], [place], [place]) Address [address] [place] [address] Care Team Providers Care Beef Splitter Name Role Phone Unavailable Primary Care Provider Unavailabl e Encounter Details Date Type Department Care Team (Late st Contact Info) Description 02/11/2020 Transcribed Document [facility] [place] Family Medicine [address] [place] [address] ProviderMegha MD [address] [place] [address] Social History Tobacco Use Types [...] Conversion Note - Historical ProviderMD - 02/11/2020 6:27 AM CDT [place] Suicide Severity Rating Scale (C-SSRS) Entered On: 02/11/2020 6:37 EDT Performed On: 02/11/2020 6:35 EDT by Jefferson Jackson RN [place] Suicide Severity Rating Scale (C-SSRS) CSSRS Past Month Wish to be : No CSSRS Past Month Suicidal Thoughts : No CSSRS Lifetime Suicide Behavior : No Suicide Severity Rating Score : 0 Suicide Severity Rating : No Additional Care Required at this time Jefferson Jackson RN - 02/11/2020 6:35 EDT documented in this encounter Plan of Treatment Not on file documented as of this encounter Visit Diagnoses Not on filedocumented in this encounter
--- OUTSIDE RECORDS SUMMARY | 2025-06-14 09:48 | XMS_ITS | Clinical Summary ---
Author Organization [employer] ([place], [place], [place], [place], [place]) Address [address] [place] [id number] Care Team Providers Care Beauty Culturist Apprentice Name Role Phone Unavailable Primary Care Provider Unavailabl e Social History Tobacco Use Types Packs/Day Years Used Date Smoking Tobacco: Never Assessed Sex and Gender Information Value Date Recorded Sex Assigned at Male 12/24/2021 6:31 PM CDT Legal Sex Male 7:07 PM CDT Gender Identity Male 12/24/2021 6:31 PM CDT Sexual Orientation Not on file Plan of Treatment Not on file
--- OUTSIDE RECORDS SUMMARY | 2025-06-14 09:48 | XMS_ITS | Encounter Summary ---
Author Organization [employer] ([place], [place], [place], [place], [place]) Address [address] [place] [address] Care Team Providers Care Neurology Professor Name Role Phone Unavailable Primary Care Provider Unavailabl e Encounter Details Date Type Department Care Team (Late st Contact Info) Description 02/11/2020 Transcribed Document [facility] [place] Family Medicine [address] [place] [address] ProviderMegha MD [address] [place] [address] Social History Tobacco Use Types [...] Note - Megha Rivera MD - 02/11/2020 6:43 AM CDT Patient: ANIVAL CORCORAN Age: 49 years Sex: Male : 1970 Associated Diagnoses: Hypertension; Musculoskeletal chest pain Author: OSCAR STERLING MD-EMR Basic Information Additional information: Chief Complaint from Nursing Triage Note : Chief Complaint 02/11/2020 6:33 EDT Chief Complaint pt here c/o mscp states worse with activity. states has been going on for 3 weeks but more consistent the past 3 days states pressure in nature non radiating . History of Present Illness The patient presents with 49-year-old male complaining of a tightness in his mid chest for the past 2 days since some heavy work on Tuesday. Patient reports he still had hepatitis when he went to sleep last night and it was there again this morning when he woke up he decided to come to the ED for evaluation. Nausea, vomiting, diaphoresis, he has no focal weakness or numbness. Patient denies history of diabetes, hypertension, hypercholesterolemia and family history of early DE. Patient is a former smoker who quit in 2015 after 30 years. Patient reports having a heart catheter in 2011 with 120% lesion at that time.. The onset was 3 days ago. The course/duration of symptoms is constant. Location: generalized. Radiating pain: none. The character of symptoms is tightness. The degree at onset was moderate. The degree at maximum was moderate. The exacerbating factor is none. The relieving factor is none. Risk factors consist of smoking. Prior episodes: non-cardiac. Therapy today None. Review of Systems Constitutional symptoms: No fever, no chills. Skin symptoms: No jaundice, Eye symptoms: Vision unchanged. ENMT symptoms: No ear pain, Respiratory symptoms: No shortness of breath, Cardiovascular symptoms: No chest pain, Gastrointestinal symptoms: No abdominal pain, Genitourinary symptoms: No dysuria, Musculoskeletal symptoms: No back pain, Neurologic symptoms: No dizziness, Endocrine symptoms: No polyuria, Additional review of systems information: All other systems reviewed and otherwise negative. Health Status Allergies: Allergic Reactions (Selected) No Known Allergies. Past Medical/ Family/ Social History Medical history Cardiovascular: no coronary artery disease, no hypertension. Endocrine: no diabetes. Surgical history: No active procedure history items have been selected or recorded.. Family history: No family history items have been selected or recorded., Hypertension. Social history: Social & Psychosocial Habits Home/Environment 09/11/2013 Living situation: Home/Independent , Former smoker. Physical Examination Vital Signs Vital Signs/Vital Measures 02/11/2020 6:33 EDT Systolic Blood Pressure 198 mmHg HI Diastolic Blood Pressure 79 mmHg Temperature Source Oral Temperature Mode Fahrenheit Temperature, Fahrenheit 98 Deg F Clinical Temperature, C 36.7 Deg C Peripheral Pulse Rate 66 bpm Respiratory Rate 16 Breaths/Min Oxygen Saturation 100 % Oxygen Therapy Mode Room air . Measurements 02/11/2020 6:33 EDT Height Source Stated Height Entry Format [place] Height/Length, CANADIAN (ft) 5 ft Height/Length CANADIAN 8 Inch CLINICALHEIGHT 172.72 cm [place] Body Weight 67.45 kg Weight Source, ED Critical estimated dosing weight Weight Entry Format [place] Weight Hungarian lb 200 lb CLINICALWEIGHT 90.91 kg Body Surface Area (BSA) 2.05 m2 Body Mass Index 30.5 kg/m2 HI . Oxygen Saturation 02/11/2020 6:33 EDT Oxygen Saturation 100 % . General: Alert, mild distress. Skin: Warm, dry. Eye: Pupils are equal, round and reactive to light, extraocular movements are intact, normal conjunctiva. Ears, nose, mouth and throat: Tympanic membranes clear. Neck: Supple, no tenderness. Cardiovascular: Regular rate and rhythm, No murmur. Respiratory: Lungs are clear to auscultation, respirations are non-labored. Gastrointestinal: Soft, Non distended. Back: Nontender, Normal range of motion. Musculoskeletal: Normal ROM, normal strength. Neurological: Alert and oriented to person, place, time, and situation, No focal neurological deficit observed. Psychiatric: Cooperative. Medical Decision Making Differential Diagnosis: Unstable angina, angina, anxiety, atypical chest pain, costochondritis, pleurisy. Documents reviewed: Emergency department nurses' notes. Orders Include Previous Orders (Selected) Inpatient Orders Ordered ED Fall Risk Documented: Pulse Oximetry Continuous Monitoring: Ordered (Exam Ordered) CR Chest 1 Vw Portable: Ordered (In-Lab) .Automated Differential: CBC w/ Auto Diff: CMP Comprehensive Metabolic Panel: ProBNP: Troponin I Ultra: Completed ED Adult Fall Risk Assessment: ED Adult Triage: ED C-SSRS: ED Clinical Reconciliation: ED mini bar attendant: Saline Lock Insert: . Electrocardiogram: Time 02/11/2020 06:34:00, rate 60, normal sinus rhythm, No ST changes, no ectopy, normal NH & QRS intervals, EP Interp. Results review: Lab results : Lab Results 02/11/2020 9:33 EDT Troponin I Ultra <0.015 ng/mL 02/11/2020 7:30 EDT Troponin I Ultra <0.015 ng/mL 02/11/2020 6:45 EDT Sodium Level 139 mmol/L Potassium Level 3.9 mmol/L Chloride Level 109 mmol/L Carbon Dioxide Level 23 mmol/L Anion Gap 11 Glucose Level 102 mg/dL Blood Urea Nitrogen 16 mg/dL Creatinine Level 1.20 mg/dL eGFR >60 mL/min/1.73m2 eGFR NonAfrican >60 mL/min/1.73m2 Bun/Creatinine 13.3 Calcium Level 8.3 mg/dL LOW Protein Total 7.6 Gram/dL Albumin Level 3.7 Gram/dL Globulin 3.9 Gram/dL A/G Ratio 0.9 LOW Bilirubin Total 0.5 mg/dL Alk Phos 72 Units/Liter AST 16 Units/Liter ALT 36 Units/Liter Troponin I Ultra <0.015 ng/mL ProBNP 33 pg/mL WBC 6.5 K/uL RBC 5.18 Million/uL Hgb 15.6 g/dL Hct 45.6 % MCV 88.0 fL MCH 30.1 pg MCHC 34.2 Gram/dL Platelet Count 198 K/uL MPV 9.6 fL RDW 13.6 % Neut % 49.0 % Neut # 3.18 K/uL Lymph % 36.4 % Lymph # 2.36 K/uL Converse % 10.8 % Converse # 0.70 K/uL Eos % 2.3 % Eos # 0.15 Baso % 1.5 % Baso # 0.10 Slide Review No . Radiology results: Radiology Results (Last 48 hours) [id number] -- 02/11/2020 06:27 CR Chest 1 Vw Portable (02/11/2020 07:00) Result: PORTABLE CHEST 02/11/2020 5:40 AMHISTORY: Shortness of breathCOMPARISON: January 2010FINDINGS: The cardiac silhouette is normal in size. The mediastinaland hilar contours are unremarkable. The lungs are clear. There is nopneumothorax. The visualized osseous structures demonstrate no acuteabnormalities.IMPRESSION: No acute cardiopulmonary process. Images reviewed, interpreted, and dictated by Dr. Lamonte Otero.Transcribed by April Johansen (R).I have personally viewed, interpreted and dictated the examination. Ihave read and agree with the above final transcribed report. . Reexamination/ Reevaluation Time: 02/11/2020 10:19:00 . Notes: On reevaluation, patient is pain-free. Troponin negative. No significant EKG changes. Patient will follow-up with PCP. Given strict return precautions. Verbalized understanding. Patient is low risk for acute coronary syndrome based on heart score.. Impression and Plan Diagnosis Hypertension - Discharge, Medical Musculoskeletal chest pain - Discharge, Medical Plan Condition: Improved. Disposition: Discharged Admit/Transfer/Discharge: Discharge (Order): Start: 02/11/2020 10:23 EDT, Discharge to: Home , Patient care transitioned to: Time: 02/11/2020 07:11:00, CLAUDETTE LUCIO MD. Patient was given the following educational materials: Chest Wall Pain. Follow up with: CURTIS GANT Within 2 to 3 days. Counseled: Patient, Regarding diagnosis, Regarding diagnostic results, Regarding treatment plan, Patient indicated understanding of instructions. documented in this encounter Plan of Treatment Not on file documented as of this encounter Visit Diagnoses Not on filedocumented in this encounter
--- OUTSIDE RECORDS SUMMARY | 2025-06-14 09:48 | XMS_ITS | Encounter Summary ---
Author Organization [employer] ([place], [place], [place], [place], [place]) Address [address] [place] [address] Care Team Providers Care Body Straightener Name Role Phone Unavailable Primary Care Provider Unavailabl e Encounter Details Date Type Department Care Team (Late st Contact Info) Description 02/11/2020 Transcribed Document [facility] [place] [facility] [place] [address] ProviderMegha MD [address] [place] [address] Social History Tobacco Use Types [...] Conversion Note - Historical ProviderMD - 02/11/2020 10:24 AM CDT documented in this encounter Plan of Treatment Not on file documented as of this encounter Visit Diagnoses Not on filedocumented in this encounter
--- OUTSIDE RECORDS SUMMARY | 2025-06-14 09:48 | XMS_ITS | Encounter Summary ---
Author Organization [employer] ([place], [place], [place], [place], [place]) Address [address] [place] [address] Care Team Providers Care Publicity Writer Name Role Phone Unavailable Primary Care Provider Unavailabl e Encounter Details Date Type Department Care Team (Late st Contact Info) Description 02/11/2020 Transcribed Document [facility] [place] [facility] [place] [address] ProviderMegha MD [address] [place] [address] Social History Tobacco Use Types [...] ProviderMD - 02/11/2020 6:27 AM CDT ED Triage Entered On: 02/11/2020 6:35 EDT Performed On: 02/11/2020 6:33 EDT by Jefferson Jackson RN ED Triage Across the Room Chief Complaint : pt here c/o mscp states worse with activity. states has been going on for 3 weeks but more consistent the past 3 days states pressure in nature non radiating Triage Date/Time : 02/11/2020 6:33 EDT Jefferson Jackson RN - 02/11/2020 6:33 EDT DCP GENERIC CODE Tracking Acuity : 2 - Emergent Tracking Group : [facility] ED Jefferson Jackson RN - 02/11/2020 6:33 EDT Mode of Arrival : Ambulatory Transported to ED by : Walk in To Room Via : Ambulate Accompanied By : Unaccompanied ED Vital Signs : Document Height & Weight : Document ED Allergies : Document ED Reason for Visit : Document Tetanus Immunization : Greater than 5 years Jefferson Jackson RN - 02/11/2020 6:33 EDT Infectious Disease History Has the patient ever been tested for COVID-19? : No, Patient stated Does patient have symptoms of COVID-19? : No COVID19 Screening : No Experiencing Infectious Disease Symptoms : No symptoms Physical contact outside [place] in the last 30 days : No Infectious Disease History : None Tuberculosis Symptoms : None Jefferson Jackson RN - 02/11/2020 6:33 EDT Vital Signs ED Temperature Source : Oral Temperature Mode : Fahrenheit Temperature, Fahrenheit : 98 Deg F Clinical Temperature, C : 36.7 Deg C Oxygen Therapy Mode : Room air Peripheral Pulse Rate : 66 bpm Respiratory Rate : 16 Breaths/Min Systolic Blood Pressure : 198 mmHg (HI) Diastolic Blood Pressure : 79 mmHg Oxygen Saturation : 100 % Jefferson Jackson RN - 02/11/2020 6:33 EDT Allergy (As Of: 02/11/2020 06:35:42 EDT) Allergies (Active) No Known Allergies Estimated Onset Date: Unspecified ; Created By: Contributor_system [employer]; Reaction Status: Active ; Category: Drug ; Substance: No Known Allergies ; Type: Allergy ; Updated By: Contributor_system HIST_KARLA; Reviewed Date: 02/11/2020 6:35 EDT Diagnosis Control ED (As Of: 02/11/2020 06:35:42 EDT) Diagnoses(Active) Chest pain Date: 02/11/2020 ; Diagnosis Type: Reason For Visit ; Confirmation: Complaint of ; Clinical Dx: Chest pain ; Classification: Medical ; Clinical Service: Emergency medicine ; Code: PNED ; Probability: 0 ; Diagnosis Code: [id number] ED Height and Weight Height Source : Stated Height Entry Format : [place] Height, Feet : 5 ft(Converted to: 152 cm, 60 Inch) Height, Inches : 8 Inch(Converted to: 0 ft 8 Inch, 20.32 cm) Clinical Height : 172.72 cm Weight Source, ED : Critical estimated dosing weight Weight Entry Format : [place] Weight, Pounds : 200 lb Clinical Dosing Weight : 90.91 kg Body Surface Area (BSA) : 2.05 m2 Body Mass Index : 30.5 kg/m2 (HI) [place] Body Weight (IBW) : 67.45 kg Jefferson Jacskon, RAGHAV - 02/11/2020 6:33 EDT documented in this encounter Plan of Treatment Not on file documented as of this encounter Visit Diagnoses Not on filedocumented in this encounter
--- OUTSIDE RECORDS SUMMARY | 2025-06-14 09:48 | XMS_ITS | Clinical Summary ---
Author Organization [facility] Address [address] [place] [address] Care Team Providers Care Population Health Manager Name Role Phone Unavailable Primary Care Provider Unavailabl e Social History Tobacco Use Types Packs/Day Years Used Date Smoking Tobacco: Never Assessed Sex and Gender Information Value Date Recorded Sex Assigned at Not on file Legal Sex Male 8:46 PM EDT Gender Identity Not on file Sexual Orientation Not on file Plan of Treatment Health Maintenance Due Date Last Done Comments DTap,Tdap,and Td (1 - Tdap) 10/09/1979 Colonoscopy 2013 PSA YEARLY 2018 Pneumococcal 50+ (1 of 1 - PCV) 2018 Shingrix (#1) 2018 Influenza Vaccine (#1) 2025 RSV Vaccine (60+ or ) (1 - 1-dose 75+ series) 10/09/2043 HPV Aged Out No longer eligi ble based on patient's age to complete this topic Meningococcal conjugate damián nt 4 (MCV4) Aged Out No longer eligible b ased on patient's age to complete this topic RSV Immunization (<20 months) Aged Out No longer eligible based on patient's age to complete this topic
--- OUTSIDE RECORDS SUMMARY | 2025-06-14 09:48 | XMS_ITS | Referral Summary ---
Author Organization [employer] ([place], [place], [place], [place], [place]) Address [address] [place] [address] Care Team Providers Care Yarn Examiner Name Role Phone Unavailable Primary Care Provider [...]
--- NOTE | 2025-06-14 10:00 | CT_ITS ---
FINAL REPORT CLINICAL HISTORY: lung cancer screening former smoker quit 11 years ago. smoked 1 1/2 ppd x 36 years COMPARISON: 06/13/2024 FINDINGS: CT CHEST LOW DOSE SCREENING HISTORY: Screening exam for lung cancer. 54-year-old male, former smoker quit 11 years ago, [id number] history DOSE: CTDI vol: 2.90 mGy, DLP: 103.42 mGy*cm TECHNIQUE: Axial CT without IV contrast administration using low dose protocol. This study was performed with techniques to keep radiation doses as low as reasonably achievable, (ALARA). Individualized dose reduction techniques using automated exposure control or adjustment of mA and/or kV according to the patient's size were employed. No acute lung disease is present. There is a stable 4 mm right lower lobe nodule, best seen on image #36 of series 4. This likely represents a granuloma given findings of prior granulomatous disease. Right middle lobe scarring is present. No pleural or pericardial effusion is seen. No adenopathy or mass lesion is present. IMPRESSION: Stable 4 mm right lower lobe nodule, likely represents a granuloma given findings of prior granulomatous disease. LUNG RADS CATEGORY 2 RECOMMENDATION: 12 month LDCT follow up Reviewed, Interpreted and Dictated by Nicole Fox MD Transcribed by Nohemy Marroquin Authenticated and [facility]
== END 2025-06-14 23:59 | disposition home or self-care (01) ==
LOC: RAD 09:45
PROVIDERS: PCP Family Medicine; Visit Provider Internal Medicine Pulmonary Disease
DX: Z12.2 Encounter for screening for malignant neoplasm of respiratory organs (principal); Z87.891 Personal history of nicotine dependence; R91.1 Solitary pulmonary nodule; J98.4 Other disorders of lung
CPT/HCPCS: 71271